=== PATIENT | female | born 1950 | race Caucasian/White ===

== ENCOUNTER → 2018-05-05 23:05 | Outpatient (CLI) | payer MEDICARE, OTHER, SELFPAY ==
[2018-03-24 17:14] VITALS: BMI 30.1
[2018-05-05 23:38] LABS: Thyroid Stim Hormone (TSH) 1.27 uIU/mL (0.358-3.74)
[2018-05-07 16:08] LABS: Thyroid Peroxidase AB 59 IU/mL (0-34)
[2018-05-07 18:24] LABS: Thyroglobulin Antibody < 1.0 IU/mL (0.0-0.9)
--- OUTSIDE RECORDS SUMMARY | 2018-08-07 10:37 | XMS RPT_ITS ---
:1950 Author Organization OHIP Care Team Providers Name Role Phone Avila Carreon WATER RECLAMATION SYSTEMS OPERATOR-C Attending Unavailable Carreon, Avila WATER RECLAMATION SYSTEMS OPERATOR-C Referring Unavailable Carreon, Avila WATER RECLAMATION SYSTEMS OPERATOR-C Primary Care Unavailable KETAN ECHEVERRIA Referring Unavailable GANGEL RA MISHRA Attending Unavailable CARREON, AVILA L Referring Unavailable GANGEL JR, RA GENE Referring Unavailable GANGEL JR, RA GENE Referring Unavailable GANGEL JR, RA GENE Referring Unavailable CARREON, AVILA L Referring Unavailable KETAN ECHEVERRIA Referring Unavailable GANRA COULTER JR Attending Unavailable CARREON, AVILA L Referring Unavailable GANGEL JR, RA GENE Referring Unavailable ERICKA LIVINGSTON Admitting Unavailable ERICKA LIVINGSTON Attending Unavailable SAUNDRA [employer] Consulting Unavailable BONIFACIO BEST Admitting Unavailable BONIFACIO BEST Attending Unavailable KETAN ECHEVERRIA Attending Unavailable KELTON MISHRA, RA GENE Referring Unavailable RA WARREN Attending Unavailable CARREON, AVILA Referring Unavailable CARROEN, AVILA Primary Care Unavailable MD KETAN ECHEVERRIA Referring Unavailable CARREON, AVILA Primary Care Unavailable RA WARREN Attending Unavailable CARREON, AVILA Referring Unavailable CARREON, AVILA Primary Care Unavailable RA WARREN Referring Unavailable CARREON, AVILA Primary Care Unavailable RA WARREN Referring Unavailable CARREON, AVILA Primary Care Unavailable RA WARREN Referring Unavailable CARREON, AVILA Primary Care Unavailable CARREON, AVILA Referring Unavailable CARREON, AVILA Primary Care Unavailable MD KETAN ECHEVERRIA Referring Unavailable CARREON, AVILA Primary Care Unavailable RA WARREN Referring Unavailable CARREON, AVILA Primary Care Unavailable ACRREON, AVILA Primary Care Unavailable ERICKA LIVINGSTON Admitting Unavailable ERICKA LIVINGSTON Attending Unavailable SAUNDRA [employer] Consulting Unavailable Yoli BEST Admitting Unavailable Yoli BEST Attending Unavailable CARREON, AVILA Primary Care Unavailable PROBLEMS PROBLEMS DATE TYPE CONDITION / CODE ATTENDING STATUS SOURCE 03/24/2018 Active Other chest pain SALVINO, Active [facility] / R07.89(ICD-10) BONIFACIO HUSSEIN Other [facility] Repository 03/24/2018 Active Chest pain, SALVINO, Active [facility] unspecified / BONIFACIO HUSSEIN Other [facility] R07.9(ICD-10) Repository 03/24/2018 Admitting Unknown / Yoli BEST Active [facility] diagnosis UNK(Unknown) BONIFACIO [facility] Repository 05/06/2018 Unknown E03.9 - Andrade, Active [place] Hypothyroidism, Avila WATER RECLAMATION SYSTEMS OPERATOR-C Community unspecified / Hospital E03.9(ICD-10) Repository 05/06/2018 Unknown R13.10 - Carreon, Active [facility] Dysphagia, Avila WATER RECLAMATION SYSTEMS OPERATOR-C Community unspecified / Hospital R13.10(ICD-10) Repository 03/22/2018 Active Jaw pain / LASH-RITTER, Active [facility] R68.84(ICD-10) ERICKA A Other [facility] Repository 08/23/2017 Active Unknown / NA Active [facility] UNK(Unknown) Other [facility] Rep[facility] 08/15/2017 Active Malignant NA Active [facility] neoplasm of Other [facility] unspecified Repository kidney, except renal pelvis / C64.9(ICD-10) 07/19/2017 Active Solitary NA Active [facility] pulmonary nodule Other [facility] / R91.1(ICD-10) Repository PROCEDURES PROCEDURES No Procedure Records FoundRESULTS RESULTS ANES POST Observed: 06/11/2018 Status: COMPLETED Source: [place] 9:51 AM [facility] OTHER CAMPUS REPOSITORY HNO ID: [id number] Author: Fab Hart Service: Anesthesiology Author Type: Physician Type: Anesthesia PostOp Filed: 06/11/2018 10:14 AM Note Text: POST ANESTHESIA EVALUATION NOTE SERVICE DATE: 06/11/2018 SERVICE TIME: 10:14 AM : 1950 Vitals: 06/11/18752 Temp: 36.6 ?C (97.9 ?F) 06/11/18 07506/11/18 0908 06/11/18917 BP: 171/82 150/73 144/81 06/11/18 0753 06/11/18 0908 06/11/18917 Pulse: 88 79 83 06/11/18 0753 06/11/18 0908 06/11/18917 Resp: 16 16 16 06/11/18 0753 06/11/18 0908 06/11/18917 SpO2: 99% 93% 96% Validated Vital Signs: Yes POST ANES STATUS: No apparent anesthetic complications. The patient is appropriately hydrated with stable respiratory and cardiovascular status. Patient has safe and adequate airway control. The patient has appropriate pain relief and no significant post operative nausea or vomiting. The patient has achieved baseline mental status. Intra-Operative Events: No Significant Anesthesia Events Further assessment by Anesthesia Service: None Other Remarks: SIGNATURE: Fab Hart MD PATIENT NAME: Peace Campa DATE: June 11, 2018 TIME: 10:14 AM PAGER/CONTACT #: NURSING PROG Observed: 06/11/2018 Status: COMPLETED Source: [place] 9:47 AM [facility] REPOSITORY HNO ID: [id number] Author: Lselie Mejia RN Service: (none) Author Type: Registered Nurse Type: Nursing Progress Note Filed: 06/11/2018 9:47 AM Note Text: Peace Campa [id number] AMBULATED TO BATHROOM WITH STEADY GAIT Leslie Mejia RN NURSING PROG Observed: 06/11/2018 Status: COMPLETED Source: [place] 9:41 AM [facility] REPOSITORY HNO ID: [id number] Author: Leslie Mejia RN Service: (none) Author Type: Registered Nurse Type: Nursing Progress Note Filed: 06/11/2018 9:41 AM Note Text: Peace Campa [id number] ATTENDING PHYSICIAN SPOKE WITH PATIENT AND VISITOR(S) Leslie Mejia RN NURSING PROG Observed: 06/11/2018 Status: COMPLETED Source: [place] 9:31 AM [facility] REPOSITORY HNO ID: [id number] Author: Leslie Mejia RN Service: (none) Author Type: Registered Nurse Type: Nursing Progress Note Filed: 06/11/2018 9:31 AM Note Text: Peace Campa [id number] PATIENT DRESSED SELF Leslie Mejia RN NURSING PROG Observed: 06/11/2018 Status: COMPLETED Source: [place] 9:19 AM [facility] REPOSITORY HNO ID: [id number] Author: Leslie Mejia RN Service: (none) Author Type: Registered Nurse Type: Nursing Progress Note Filed: 06/11/2018 9:20 AM Note Text: Peace Campa [id number] ANESTHESIOLOGIST SPOKE WITH PATIENT AND VISITOR(S) Leslie Mejia RN NURSING PROG Observed: 06/11/2018 Status: COMPLETED Source: [place] 8:59 AM [facility] REPOSITORY HNO ID: [id number] Author: Darya StringerRn) ANDRAE Leblanc Service: Nursing Author Type: Registered Nurse Type: Nursing Progress Note Filed: 06/11/2018 9:01 AM Note Text: ESOPHAGUS DILATED TO 20MM FOR [address] BEST. REF: [id number] LOT: [id number] EXP: 04-21-2020 18MM - 20MM OPERATIVE NO Observed: 06/11/2018 Status: COMPLETED Source: [place] 8:49 AM [facility] REPOSITORY HNO ID: [id number] Author: Bonifacio Best Service: Gastroenterology Author Type: Physician Type: Operative Report Filed: 06/11/2018 9:09 AM Note Text: OPERATIVE/PROCEDURE REPORT LOG ID: [id number] Surgery/Procedure Date: 06/11/2018 Incision/Procedure Start Time: 8:54 AM Incision Close/Procedure End Time: 9:01 AM Surgeon(s)/Proceduralist(s) and Metal Hardener(s): Surgeon(s) and Role: * Bonifacio Best - Primary No Additional Staff Procedure(s): Esophagogastroduodenoscopy (EGD) with biopsy and dilation Anesthesia: Monitored Anesthesia Care Brief History: 67 yo female with c/o upper abdominal pain, bloating and dysphagia. The benefits, alternatives, and risks of the procedure(s) including (but not exclusive to ) bleeding, perforation, allergic reaction(s) due to sedatives, need for hospitalization, need for transfusions, need for surgery, and likelihood of missing a polyp or neoplastic lesion, were explained to the patient/guardian/responsible accompanying adult who is agreeable. Procedure Details: The patient was placed in the left lateral decubitus position. A bite block was placed and medications administered as above. The Olympus gastroscope was used to intubate the oropharynx and esophagus with ease. We proceeded down to the second part of the duodenum. There was mild bulbar duodenitis seen with some erosions.We then withdrew into the stomach and visualized the antrum and body. There was mild antral gastritis seen. Biopsies were taken to rule out H. Pylori. Retroflexion was performed and this showed a hiatal hernia but otherwise was normal. The diaphragmatic hiatus was at 40 cm. The squamocolumnar junction, and GE junction were at 36 cm. There was LA grade A esophagitis seen and a loose stricture in the distal esophagus. Biopsies from the distal esophagus were obtained and the stricture was dilated with a 20 mm balloon which was held in place for 30 seconds. There was minimal resistance when the balloon was fully inflated. The scope was then withdrawn and the patient tolerated the procedure well. Pre-Op/Pre-Procedure Diagnosis: Abdomina pain Bloating Dysphagia Post-Op/Post-Procedure Diagnosis: Antral gastritis - biopsied Duodenitis LA grade A esophagitis - biopsied 4 cm hiatal hernia Loose stricture at GE junction - dilated as above Specimens: See above EBL: None Complications: None Recommendations: Start daily PPI F/U on pathology If no H. Pylori on pathology will schedule gastric emptying study Patient needs to schedule screening colonoscopy too as she has not had one done since about 2000 I performed the entire procedure. Bonifacio Best MD SIGNATURE: Bonifacio Best MD PATIENT NAME: Peace Campa DATE: June 11, 2018 TIME: 9:04 AM PAGER/CONTACT #: [phone] ANES PREOP Observed: 06/11/2018 Status: COMPLETED Source: [place] 8:12 AM [facility] REPOSITORY O ID: [id number] Author: Fab Hart Service: Anesthesiology Author Type: Physician Type: Anesthesia PreOp Filed: 06/11/2018 8:14 AM Note Text: ANESTHESIOLOGY DAY OF SURGERY NOTE SERVICE DATE: 06/11/2018 SERVICE TIME: 8:12 AM : 1950 Procedure(s) (LRB): EGD (N/A) Surgeon(s): Bonifacio Best Estimated body mass index is 30.11 kg/m? as calculated from the following: Height as of this encounter: 160 cm (5' 3). Weight as of this encounter: 77.1 kg (170 lb). 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 Renal Cell Carcinoma (Hcc) Tsh Elevation Thyroid Disorder Other Chest Pain Chest Pain PAST MEDICAL HISTORY Diagnosis Date - Kidney stones - Lung nodule found in 2006 or 2007- benign - Renal cell carcinoma (HCC) PAST SURGICAL HISTORY Procedure Laterality Date - F SALPINGO-OOPHORECTOMY [id number] - KIDNEY SURGERY HX Right 07/22/2016 KIDNEY TUMOR REMOVED AND CANCEROUS - NEPHRECTOMY PARTIAL right - PARATHYROID 2000 removed one FAMILY HISTORY Problem Relation Age of Onset - Colon Cancer Father - Pancreatic Cancer Father - Diabetes Mother - other (PARKINSONS) Mother - other (TIA) Mother - Heart Sister Atrial Fibrillation - other (PARKINSONS) Sister Social History: Social History Substance Use Topics - Smoking status: Never Smoker - Smokeless tobacco: Never Used - Alcohol use No No current facility-administered medications on file prior to encounter. Current Outpatient Prescriptions on File Prior to Encounter: Estradiol, Bulk, 100 % powd Progesterone, Bulk, 100 % powd Cholecalciferol, Vitamin D3, (VITAMIN D-3) 5,000 unit tab Take 5,000 Units by mouth once daily. VITAMIN B COMPLEX/FOLIC ACID (B COMPLEX 100 ORAL) Take by mouth. vit U-vghnjtto-jjm-calcium-D3 500 mg-500 mg -1,000 unit pwep Take by mouth. APPLE CIDER VINEGAR ORAL Take by mouth. Biotin 10,000 mcg cap Take 10,000 mcg by mouth once daily. Estriol, Bulk, 100 % powd ashwagandha root extract,bulk, 2.5 % powd BEARBERRY LEAF EXTRACT (UVA URSI LEAF FLUID EXTRACT [facility]) Current Facility-Administered Medications: lidocaine 10 mg/mL (1 %) 1-2 mg injection (XYLOCAINE) 0.1- 0.2 mL INTRADERMAL PRN Bonifacio Best lactated ringers infusion 5-30 mL/hr INTRAVENOUS CONTINUOUS Bonifacio Best lactated ringers infusion 125 mL/hr INTRAVENOUS (PACU) CONTINUOUS Fab Hart ondansetron (PF) 4 mg injection (ZOFRAN) 4 mg INTRAVENOUS (PACU) PRN Fab Hart Allergies: ALLERGIES Allergen Reactions - Sulfa (Sulfonamide * Unknown DOS EXAM: Adequate NPO status: Yes Anesthetic risks, benefits, alternatives, personnel and consent discussed: Yes Patient agrees to proceed: Yes Previous Anesthesia: No history of adverse event. Airway Assessment: MP 2; Neck ROM: Limited Extension; Airway Evaluation: Small Mouth Opening Symptoms of Sleep Apnea: None Dentition: Removable partial: upper Additional Physical Exam: Lungs: Patient health status unchanged since recent history and physical. See history and physical for exam findings. Cardiac: Patient health status unchanged since recent history and physical. See history and physical for exam findings. Additional Pertinent Findings: N/A Blood Products: Not anticipated for this procedure. Anesthetic Plan: General, Standard ASA Monitors, MAC with Sedation and Standard ASA Monitors Pain Management Plan: Parenteral or Oral and per Surgical Service ASA Class: 2 Other Medical Problems: None Chronic Beta Lizzy medication administered within 24 hours: N/A I have interviewed and examined the patient. I have reviewed the medical record and/or the pre-anesthesia evaluation, pertinent labs, and test results. Significant changes in the patient's condition since the History and Physical, not otherwise documented in primary service progress notes: No This contains updated information obtained within 48 hours of Surgery/Procedure. SIGNATURE: Fab Hart MD PATIENT NAME: Peace Campa DATE: June 11, 2018 TIME: 8:12 AM CSN: [id number] HISTORY PHYSICAL Observed: 06/11/2018 Status: COMPLETED Source: [place] 8:05 AM [facility] OTHER CAMPUS REPOSITORY [facility] ID: [id number] Author: Lynne Figueroa Service: (none) Author Type: Nurse Practitioner Type: HANDP Filed: 06/11/2018 8:55 AM Note Text: HISTORY AND PHYSICAL EXAMINATION Peace Lechuga Campa 1950 SERVICE DATE: 06/11/2018 SERVICE TIME: 8:05 AM PRIMARY CARE PHYSICIAN: Avila Carreon NP SURGEON: Surgeon(s) and Role: * Bonifacio Best - Primary ANESTHESIA: Monitored Anesthesia Care DIAGNOSIS: Other chest pain [R07.89] Chest pain [R07.9] PROCEDURE: Procedure(s): EGD (N/A) Subjective CHIEF COMPLAINT: scope HPI: This is a 67 year old female who presents with hx dysphagia with solids states has occurred for several years, is intermittent, also GERD symptoms at night. States abdominal distention for approx 2 months which is constant, states after eating has firmness of upper abdomen. Denies changes in bowel habits, last colonoscopy 2000. PROBLEMS WITH ANESTHESIA: no history of adverse anesthetic event FAMILY PROBLEMS WITH ANESTHESIA: no history of adverse anesthetic event METS: greater than 4 mets FUNCTIONAL STATUS: Independent PAST MEDICAL HISTORY Diagnosis Date - Kidney stones - Lung nodule found in 2006 or 2007- benign - Renal cell carcinoma (HCC) 07/2016 PAST SURGICAL HISTORY Procedure Laterality Date - F SALPINGO-OOPHORECTOMY [id number] bilateral - KIDNEY SURGERY HX Right 07/22/2016 KIDNEY TUMOR REMOVED AND CANCEROUS - NEPHRECTOMY PARTIAL 07/2016 right - PARATHYROID 2000 removed one FAMILY HISTORY Problem Relation Age of Onset - Colon Cancer Father - Pancreatic Cancer Father - Diabetes Mother - other (PARKINSONS) Mother - other (TIA) Mother - Heart Sister Atrial Fibrillation - other (PARKINSONS) Sister Social History Substance Use Topics - Smoking status: Never Smoker - Smokeless tobacco: Never Used - Alcohol use No Prior to Admission medications as of 06/11/18 0810 Medication Sig Last Dose Taking MEDICATION, NON-DATABASE Take by mouth three times daily. Gastrazyme Yes levothyroxine (SYNTHROID) 50 mcg tablet Yes Estradiol, Bulk, 100 % powd Yes Progesterone, Bulk, 100 % powd Yes Cholecalciferol, Vitamin D3, (VITAMIN D-3) 5,000 unit tab Take 5,000 Units by mouth once daily. Yes VITAMIN B COMPLEX/FOLIC ACID (B COMPLEX 100 ORAL) Take by mouth. Yes vit E-ucstsljl-dfi-calcium-D3 500 mg-500 mg -1,000 unit pwep Take by mouth. Yes APPLE CIDER VINEGAR ORAL Take by mouth. Biotin 10,000 mcg cap Take 10,000 mcg by mouth once daily. Estriol, Bulk, 100 % powd ashwagandha root extract,bulk, 2.5 % powd BEARBERRY LEAF EXTRACT (UVA URSI LEAF FLUID EXTRACT MISC) ALLERGIES Allergen Reactions - Sulfa (Sulfonamide * Unknown COMPLETE REVIEW OF SYSTEMS: GENERAL: No weight loss, malaise or fevers RESPIRATORY: Negative for cough, hemoptysis, wheezing, COPD, dyspnea or shortness of breath CARDIOVASCULAR: Negative for chest pain, leg swelling, hypertension, CHF or palpitations, stress echo negative ischemia, no regional wall motion abnormallity, EF 60%+/- 5% GI: See HPI : No history of dysuria, frequency or incontinence MUSCULOSKELETAL: Negative for joint pain or swelling, back pain or muscle pain PSYCH: Negative for sleep disturbance, mood disorder and recent psychosocial stressors ENDOCRINE: no DM + hypothyroidism NEURO: No history of headaches, syncope, paralysis, seizures or tremors Negative for stroke, seizures or headaches. Hem/Onc: no hx blood clots, clotting disorder hx renal cell carcinoma Objective PHYSICAL EXAM: MENTAL STATUS: alert, oriented to person, place and time HEENT: Normocephalic/atraumatic, no lymphadenopathy, pharynx clear LUNGS: Lungs clear to auscultation, Good diaphragmatic excursion CARDIAC: Normal S1 and S2; no rubs, murmurs, or gallops ABDOMEN: Abdomen soft, non-tender, BS normal, No masses or organomegaly EXTREMITIES: Extremities normal, no deformities, edema, clubbing or skin discoloration. Good capillary refill. 0=0/10 06/11/18 0753 BP: 171/82 Pulse: 88 Resp: 16 Temp: 36.6 ?C (97.9 ?F) SpO2: 99% Weight: 77.1 kg (170 lb) Height: 160 cm (5' 3) Body mass index is 30.11 kg/m?. SIGNATURE: Lynne Figueroa APRN.CNP PATIENT NAME: Peace Campa DATE: June 11, 2018 TIME: 8:05 AM PAGER/CONTACT #: PT ED Observed: 06/11/2018 Status: COMPLETED Source: [place] 7:50 AM [facility] OTHER [facility]US REPOSITORY HNO ID: [id number] Author: Maggie Lopez RN Service: (none) Author Type: Registered Nurse Type: Patient Education Filed: 06/11/2018 7:50 AM Note Text: ONGOING PATIENT EDUCATION TOPIC Reinforced: Patient Name: Peace Campa [facility] Readiness To Learn Motivation To Learn: Eager Instruction Provided To: Patient Learning Response Patient/Family Response: Verbalizes understanding of: PRE-PROCEDURE INSTRUCTIONS-Correct action to take to follow pre-procedure instructions Method of Instruction: Individual instruction Follow-Up Plan: Complete - No need for follow-up Electronically signed by: Maggie Lopez RN OFFICE VISIT Observed: 05/05/2018 Status: F Source: [place] 8:55 PM [facility] REPOSITORY After Hours Family [facility] [address] [place] [address] OFFICE VISIT Date of Service: 05/05/18 MR#: [id number] Acct: [id number] Name: PEACE CAMPA Rep #: [id number] : 1950 Provider: PARVEZ Carreon Age/Sex: 67/F Location: [facility] Status: Signed Intake Intake Visit Reasons: PAPER IN ACCORDION FILE Allergies sulfamethoxazole [From Bactrim] Adverse Reaction (Unknown, Unverified 01/21/18 17:49) unknown trimethoprim [From Bactrim] Adverse Reaction (Unknown, Unverified 01/21/18 17:49) unknown Medications Bi-est 0.625mg/0.5 ml 0.5 ml TOPICAL QDAY #30 01/21/18 [Rx Confirmed 01/21/18] apple cals PO 01/21/18 [History Confirmed 01/21/18] progesterone 0.25 ml TOPICAL BID #30 01/21/18 [Rx Confirmed 01/21/18] sour chin tablet PO .2 a day 01/21/18 [History Confirmed 01/21/18] levothyroxine 50 mcg tablet 50 mcg PO DAILY #30 tab 03/24/18 [Rx Confirmed 03/24/18] PFSH Medical History Headache (Acute) Kidney stone (Acute) Kidney tumor (Acute) Sore on toe (Acute) parathyroid removed 1 (Acute) Surgical History History of oophorectomy (Acute) History of partial nephrectomy (Acute) Family History Father Colon cancer Other CVA (cerebral vascular accident) Diabetes Hypertension Pancreas cancer HPI HPI (General) HPI HPI: PEACE CAMPA, is a 67 F who presents to the office today for Assessment AND Plan Orders Orders: Coding Level of Care Code No Charge 05/05/182054 <Electronically signed by Avila LONGORIA> Date Avila LONGORIA CC: THYROID STIM HORMONE Collected: 05/05/2018 Status: F Source: [place] (TSH) 3:50 PM [facility] REPOSITORY TYPE CODE TESTS RESULT OUT OF RANGE REFERENCE UNITS LAB L501.9520 0.358-3.74 uIU/mL Normal TSH 1.27 Performed By: #### L501.9520 #### [facility] [place], [address] THYROID ANTIBODIES Collected: 05/05/2018 Status: F Source: IR[place] 3:50 PM [facility] REPOSITORY TYPE CODE TESTS RESULT OUT OF RANGE REFERENCE UNITS LAB L3300.6900 0-34 IU/mL High TPO AB 59 6676 LAB [id number] 0.0-0.9 IU/mL Normal TG AB < 1.0 Result Comment: Thyroglobulin Antibody measured by [employer] Methodology Performed at: [facility] [address] [id number] [place] Hand: Ramone Perez PhD, Phone: [phone] Performed By: #### L3300.6750 #### [facility] (refer to report for specific site) refer to report for address and phone number OFFICE VISIT Observed: 03/24/2018 Status: F Source: [place] 9:59 PM [facility] REPOSITORY After Hours [facility] [address] [place] [address] OFFICE VISIT Date of Service: 03/24/18 MR#: [id number] Acct: [id number] Name: PEACE CAMPA Alexandrea Rep #: [id number] : 1950 Provider: PARVEZ Carreon Age/Sex: 67/F Location: [facility] Status: Signed Intake Vital Signs03/24/18 Height 5 ft 3 in 03/24/18 Weight: 170 lb Intake Visit Reasons: f/U HOSPITAL VISIT Allergies sulfamethoxazole [From Bactrim] Adverse Reaction (Unknown, Unverified 01/21/18 17:49) unknown trimethoprim [From Bactrim] Adverse Reaction (Unknown, Unverified 01/21/18 17:49) unknown Medications Bi-est 0.625mg/0.5 ml 0.5 ml TOPICAL QDAY #30 01/21/18 [Rx Confirmed 01/21/18] apple cals PO 01/21/18 [History Confirmed 01/21/18] progesterone 0.25 ml TOPICAL BID #30 01/21/18 [Rx Confirmed 01/21/18] sour chin tablet PO .2 a day 01/21/18 [History Confirmed 01/21/18] levothyroxine 50 mcg tablet 50 mcg PO DAILY #30 tab 03/24/18 [Rx Confirmed 03/24/18] PFSH Medical History Headache (Acute) Kidney stone (Acute) Kidney tumor (Acute) Sore on toe (Acute) parathyroid removed 1 (Acute) Surgical History History of oophorectomy (Acute) History of partial nephrectomy (Acute) Family History Father Colon cancer Other CVA (cerebral vascular accident) Diabetes Hypertension Pancreas cancer HPI HPI (General) HPI HPI: PEACE CAMPA, is a 67 F who presents to the office today for sudden onset of R jaw pain that progressively sent her to the Ed and was worked up for cardiac that ended up benign. Did find out her thyroid was high end of normal appointment with GI in Jun 11 for a UGI . ROS Const Constitutional: Positive for sleep problems and fatigue ENT ENT: Positive for facial pain and other (dysphagia) Endo Endo: Yes fatigue, Yes other (dysphagia) Exam Const Constitutional: Yes cooperative, Yes healthy appearing Orientation: Yes alert and awake Neck Neck: normal visual inspection Thyroid: thyroid normal Eyes General: Yes appearance normal, both eyes and all related structures Chest Chest palpation AND inspection: Yes normal inspection of the chest Resp Effort AND Inspection: Yes normal respiratory effort Auscultation: Yes clear to auscultation bilaterally Cardio Palpitation: Yes normal PMI Rate: Yes regular rate Rhythm: Yes regular rhythm GI Inspection: Yes normal to inspection Auscultation: Yes normal bowel sounds Musc Cervical Spine: Yes cervical ROM normal Thoracic/Lumbar Spine: Yes thoracic and lumbar spine normal to inspection Skin General: no rashes or lesions noted Lesions: Yes no lesions Extrem General: Yes normal to inspection Neuro General: Yes alert Psych Appearance: Positive grossly normal Mood: Positive congruent mood Affect: Positive normal affect Assessment AND Plan Problems 1. Acquired hypothyroidism E03.9 2. Oropharyngeal dysphagia R13.12 3. Jaw pain R68.84 Patient Instructions Take the levothyroxine daily by itself follow up in 6 weeks for lab work Medications New: Coding Level of Care Code Off vis,est,level 3 Diagnoses Acquired hypothyroidism E03.9 Hypothyroidism type: acquired Oropharyngeal dysphagia R13.12 Dysphagia type: oropharyngeal phase Jaw pain R68.84 03/24/182158 <Electronically signed by Avila LONGORIA> Date Avila LONGORIA CC: HOSP Observed: 03/24/2018 Status: COMPLETED Source: [facility] 12:00 AM [facility] OTHER [facility] REPOSITORY Patient:Peace Campa MRN: <[id number]> Height:5' 3(1.6 m) Weight:170 lb (77.111 kg) Outpatient Medications as of 06/11/18: MEDICATION, NON-DATABASE levothyroxine (SYNTHROID) 50 mcg tablet APPLE CIDER VINEGAR ORAL Biotin 10,000 mcg cap Estriol, Bulk, 100 % powd Estradiol, Bulk, 100 % powd Progesterone, Bulk, 100 % powd ashwagandha root extract,bulk, 2.5 % powd BEARBERRY LEAF EXTRACT (UVA URSI LEAF FLUID EXTRACT [facility] [place]) Cholecalciferol, Vitamin D3, (VITAMIN D-3) 5,000 unit tab VITAMIN B COMPLEX/FOLIC ACID (B COMPLEX 100 ORAL) vit N-taayfbgp-crz-calcium-D3 500 mg-500 mg -1,000 unit pwep Admission/Clinic Administered Medications as of 06/11/18: lactated ringers infusion lactated ringers infusion ondansetron (PF) 4 mg injection (ZOFRAN) Problem List: Axillary mass [R22.30] Mass of upper extremity [R22.30] 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 Current Outpatient Prescriptions: levothyroxine (SYNTHROID) 50 mcg tablet Cholecalciferol, Vitamin D3, (VITAMIN D-3) 5,000 unit tab Take 5,000 Units by mouth once daily. VITAMIN B COMPLEX/FOLIC ACID (B COMPLEX 100 ORAL) Take by mouth. vit N-wsyeucmk-lgb-calcium-D3 500 mg-500 mg -1,000 unit pwep Take by mouth. APPLE CIDER VINEGAR ORAL Take by mouth. Biotin 10,000 mcg cap Take 10,000 mcg by mouth once daily. Estriol, Bulk, 100 % powd Estradiol, Bulk, 100 % powd Progesterone, Bulk, 100 % powd ashwagandha root extract,bulk, 2.5 % powd BEARBERRY LEAF EXTRACT (UVA URSI LEAF FLUID EXTRACT MISC) No current facility-administered medications for this visit. ALLERGIES Allergen Reactions - Sulfa (Sulfonamide * Unknown PAST MEDICAL HISTORY Diagnosis Date - Kidney stones - Lung nodule found in 2006 or 2007- benign - Renal cell carcinoma (HCC) PAST SURGICAL HISTORY Procedure Laterality Date - F SALPINGO-OOPHORECTOMY [id number] - KIDNEY SURGERY HX Right 07/22/2016 KIDNEY TUMOR REMOVED AND CANCEROUS - NEPHRECTOMY PARTIAL right - PARATHYROID 2000 removed one FAMILY HISTORY Problem Relation Age of Onset - Colon Cancer Father - Pancreatic Cancer Father - Diabetes Mother - other (PARKINSONS) Mother - other (TIA) Mother - Heart Sister Atrial Fibrillation - other (PARKINSONS) Sister Social History Marital status: Spouse name: Years of education: Number of children: Social History Main Topics Smoking status: Never Smoker Smokeless tobacco: Never Used Alcohol use: No Drug use: No Other Topics Concern Caffeine Concern No Comment:2 cups per day GASTROENTESTINAL: Bloagting URINARY: NONE CARDIOVASCULAR: NONE NEUROLOGICAL: NONE CONSTITUTIONAL: NONE EYES: NONE EARS, NOSE AND THROAT: NONE RESPIRATORY: NONE SKIN: NONE ENDOCRINE: Hair Loss PSYCHIATRIC: NONE HEMATOLOGIC NONE MUSCULOSKELETAL: NONE IMMUNOLOGIC: NONE PHYSICAL EXAMINATION: @VSREFRESH@ GENERAL APPEARANCE: Well appearing, alert, in no acute distress, well-hydrated, well nourished.. SKIN: Skin color, texture, turgor normal, no suspicious rashes or lesions. EYES: Anicteric sclera. Pupils are equally round and reactive to light. Extraocular movements are intact. . NECK: Supple, no adenopathy; thyroid symmetric, normal size, no bruits. LUNGS: Lungs clear to auscultation. No wheezing, rhonchi, rales. HEART: RRR without murmur, gallop, or rubs. No ectopy. ABDOMEN: Abdomen soft, non-tender, non distended. Bowel sounds normal. No masses, ascites or hepatosplenomegaly. EXTREMITIES: No deformities, edema, skin discoloration, clubbing or cyanosis. NEUROLOGIC: Gait normal. Sensation and strength grossly intact.. NURSING PROG Observed: 03/22/2018 Status: COMPLETED Source: [facility] 2:02 PM [facility] REPOSITORY HNO ID: [id number] Author: Key StringerRn) ANDRAE Kumar Service: (none) Author Type: Registered Nurse Type: Nursing Progress Note Filed: 03/22/2018 2:03 PM Note Text: Discharge instructions given and pt discharged home CNDS Observed: 03/22/2018 Status: COMPLETED Source: [place] 1:15 PM [facility] REPOSITORY HNO ID: [id number] Author: Xenia Salgado Service: Hospital Medicine Author Type: Nurse Practitioner Type: Discharge Summaries Filed: 03/22/2018 1:45 PM Note Text: Attestation signed by Ericka Livingston at 03/23/2018 8:32 PM Attending Note I have reviewed the PA/LINING REPAIRER note. Additions or changes: None Signature: Ericka Livingston MD Date: 03/23/2018 Time: 8:32 PM DISCHARGE SUMMARY PATIENT NAME: Peace Campa ADMISSION DATE: 03/22/2018 DISCHARGE DATE: 03/22/2018 Attending Physician: Ericka Livingston Code Status: Not on file Highest Readmission Risk Score: 8 The 30 day readmissions risk score is derived from an internally validated risk model which evaluates patient level characteristics, utilization history, medication orders and lab results up until the day of discharge. Patients with a score of 40 or above are considered highest risk for readmission. Specific patient level drivers will be listed at the bottom of the summary. Reason for Hospitalization: chest pain Diagnosis: Principal Problem: Jaw pain Hospital Course as Described to the Patient: Peace Campa, you came to the hospital because you were having jaw pain and we were concerned that this may be cardiac in nature. You were placed in observation for further work-up and evaluation so that we could monitor your condition. While here, your blood work and EKGs were monitored. You also underwent a cardiac stress test which was within normal limits. At this time, we feel it is safe for you to return home and you are being discharged. You were interested in following up with a Gasterenterologist Dr Best ([phone]) for difficulty swallowing/getting food stuck and an Director Of Rotc Dr King ([phone]) for the thyroid history. We also recommend you follow-up with your primary care physician within 7 days to discuss your recent hospitalization and assure your symptoms continue to improve. Transitions of Care Critical Issues: none LABS AND PROCEDURES PENDING AT DISCHARGE: Test Results Not Yet Available from This Hospitalization: Please Review at Your Follow Up Appointment None No pending results. Additional Provider to Provider Information: Principal Problem: Jaw pain POA: Yes Assessment AND Plan: the initial Jaw pain has resolved. --slight pain cont however it is located more in the throat/thryoid area. Pt states in the past she had part of her parathyroid removed and has not had issues until now. Enc pt to discuss this with her PCP. Pt is also interested in meeting with GI d/t she has a hx of getting food stuck/diff swallowing she now thinks this may all be connected. --stress test today to ensure this is not a cardiac symptom was neg --ekg wnl --troponins wnl Hx of parathyroid surgery--added tsh this am which came back slightly elevated at 3.89. Pt is aware she will discuss this with her PCP and she is interested in following up with an signal fitter. A number was given for an signal fitter in dc instructions Operations During Hospitalization: None Procedures During Hospitalization: EKG Stress Test Consulting Teams During Hospitalization: Treatment Team: Attending Provider: Ericka Livingston Consulting: Saundra Ngo MD None Patient Condition @ Discharge: Stable Discharge Disposition: Home/Self Care Discharge Physical Exam: VITAL SIGNS: BP 151/79 Pulse 88 Temp 36.6 ?C (97.9 ?F) (Oral) Resp 18 Ht 157.5 cm (5' 2) Wt 77.1 kg (170 lb) SpO2 97% BMI 31.09 kg/m? GENERAL: Alert, no distress, cooperative SKIN: Skin color, texture, turgor normal. No rashes or lesions. HEAD/SINUSES: No significant findings EYES: PERRLA, EOMI EARS: External ears normal, canals clear NOSE: Nares normal. Septum midline. OROPHARYNX: Lips, mucosa, and tongue normal. Teeth and gums normal. Oropharynx normal. NECK: No jugulovenous distention, No carotid bruits, Carotid pulse normal contour, Supple LUNGS: Lungs clear to auscultation, Good diaphragmatic excursion CARDIAC: Normal S1 and S2; no rubs, murmurs, or gallops ABDOMEN: Abdomen soft, non-tender, BS normal, No masses or organomegaly EXTREMITIES: Extremities normal, no deformities, edema, clubbing or skin discoloration. Good capillary refill., No ulcers NEURO: Gait normal. Reflexes normal and symmetric. Sensation grossly intact, Cranial nerves II-XII intact PULSES: 2+ radial, 2+ carotid The remainder of the physical exam is noncontributory. Information Provided to Patient: cardiac chest pain risk factors Diet: Resume pre-hospital diet Activity: Resume pre-hospital activity Wound/Surgical Site Care: ALLERGIES Allergen Reactions - Sulfa (Sulfonamide * Unknown Discharge Medications: Current Discharge Medication List CONTINUE these medications which have NOT CHANGED Biotin 10,000 mcg Take 10,000 mcg by mouth once daily. Estradiol, Bulk, 100 % powd Progesterone, Bulk, 100 % powd cholecalciferol (VITAMIN D3) 5,000 Units Take 5,000 Units by mouth once daily. VITAMIN B COMPLEX/FOLIC ACID (B COMPLEX 100 ORAL) Take by mouth. vit Y-kuqrtzwh-npm-calcium-D3 500 mg-500 mg -1,000 unit pwep Take by mouth. APPLE CIDER VINEGAR ORAL Take by mouth. Estriol, Bulk, 100 % powd ashwagandha root extract,bulk, 2.5 % powd BEARBERRY LEAF EXTRACT (UVA URSI LEAF FLUID EXTRACT MISC) Future Appointments: Follow Up with PCP: Avila Carreon NP Date and Time Provider Department Dept Phone 02/23/2019 8:15 AM Ra Warren JrGreyson Urol [facility] [phone] The patient's risk for 30-day readmission is determined using the following contributing factors: Pt variables contributing to increased readmission risk: 16 Most Recent BUN Result 8.9 First Resulted Calcium During Admission 1 Previous ED Visit (6 mos.)? 1 Number of Previous ED Visits (6 mos.) 1 Insurance - Medicare 1 Active Medication Orders TIME OF CARE: Discharge Management: I personally spent greater than 30 minutes involved in the discharge management of this patient. SIGNATURE: Xenia Salgado PATIENT NAME: Peace Campa DATE: March 22, 2018 TIME: PAGER/CONTACT #: CONSULT Observed: 03/22/2018 Status: COMPLETED Source: [facility] 12:09 PM [facility] REPOSITORY HNO ID: [id number] Author: Saundra Ngo MD Service: Gastroenterology Author Type: Physician Type: Consults Filed: 03/22/2018 6:12 PM Note Text: CONSULT: GASTROENTEROLOGY SERVICE SERVICE DATE: 03/22/18 SERVICE TIME: 12:09 PM REASON FOR CONSULT: difficulty swallowing/jaw pain REQUESTING PHYSICIAN: Miki Pt left before I was able to see her. She is suppose to follow up in the GI clinic as an outpt. SIGNATURE: Saundra Ngo MD PATIENT NAME: Peace Campa DATE: 03/22/18 TIME: 12:09 PM NURSING PROG Observed: 03/22/2018 Status: COMPLETED Source: [place] 11:48 AM [facility] OTHER CAMPUS REPOSITORY HNO ID: [id number] Author: Betsy StringerRn) ANDRAE Gonzales Service: Cardiovascular Testing Author Type: Registered Nurse Type: Nursing Progress Note Filed: 03/22/2018 11:49 AM Note Text: Stress Echo teaching done. Test complete, report to follow. NURSING PROG Observed: 03/22/2018 Status: COMPLETED Source: [facility] 10:34 AM [facility] OTHER [facility] REPOSITORY HNO ID: [id number] Author: Key (Rn) ANDRAE Kumar Service: (none) Author Type: Registered Nurse Type: Nursing Progress Note Filed: 03/22/2018 10:34 AM Note Text: Pt sent to cardiac fxn via w/c HEMOGRAM/DIFF Collected: 03/22/2018 Status: F Source: [facility] 9:30 AM [facility] SYSTEM REPOSITORY TYPE CODE TESTS RESULT OUT OF REFERENCE UNITS RANGE LAB WBC(LOINC) 3.98-10.04 thou/cmm WBC 8.66 LAB RBC(LOINC) 3.93-5.22 mil/cmm RBC 4.85 LAB HGB(LOINC) 11.2-15.7 g/dL Hgb 14.5 LAB HCT(LOINC) 34.1-44.9 % Hct 43.5 LAB MCV(LOINC) 79.4-94.8 fl MCV 89.7 LAB MCH(LOINC) 25.6-32.2 pg MCH 29.9 LAB MCHC(LOINC 31.6-34.8 % ) MCHC 33.3 LAB RDW(LOINC) 11.7-14.4 % RDW 13.5 LAB RDWSD(LOIN 36.4-46.3 fl C) RDW SD 44.1 LAB PLT(LOINC) 182-369 thou/cmm Platelet 359 LAB MPV(LOINC) 9.4-12.3 fl MPV 9.8 LAB SEG(LOINC) % Seg Neutrophil 73.1 LAB IGRE(LOINC % ) Immature Grans 0.20 LAB LYMPH(LOIN % C) Lymphocyte 15.4 LAB MNO(LOINC) % Monocyte 9.0 LAB EOSIN(LOIN % C) Eosinophil 1.7 LAB BASO(LOINC % ) Basophil 0.6 LAB SEGN(LOINC 1.56-6.13 thou/cmm ) Abs. High Neut (ANC) 6.33 LAB IGAB(LOINC 0.00-0.05 thou/cmm ) Abs Immature Grans 0.02 LAB LYMN(LOINC 1.18-3.74 thou/cmm ) Abs. Lymph 1.33 LAB MONON(LOIN 0.27-0.70 thou/cmm C) Abs. High [place] 0.78 LAB EOSN(LOINC 0.00-0.31 thou/cmm ) Abs. Eosin 0.15 LAB BASON(LOIN 0.01-0.08 thou/cmm C) Abs. Baso 0.05 Performed By: #### CBCD1 #### [place] [address] TROPONIN I Collected: 03/22/2018 Status: F Source: [facility] 8:30 AM HEALTH SYSTEM REPOSITORY TYPE CODE TESTS RESULT OUT OF REFERENCE UNITS RANGE LAB TROP(LOINC) 0.015-0.045 ng/ml Troponin I < 0.015 Performed By: #### TROP #### [place] [address] TSH, 3RD GENERATION Collected: 03/22/2018 Status: F Source: [facility] 8:30 AM HEALTH SYSTEM REPOSITORY TYPE CODE TESTS RESULT OUT OF REFERENCE UNITS RANGE LAB TSH3(LOINC 0.358-3.740 uIU/mL ) TSH, 3rd High generation 3.890 Performed By: #### TSH3 #### [place] [address] EKG (AK,AV,EU,FV,HL,SIMRAN,MM,SP) Observed: Status: F Source: [facility] 03/22/2018 6:46 AM [facility]INIC OTHER CAMPUS REPOSITORY NAME : PEACE CAMPA PID : [id number] : 1950 Gender : Female Race : ORD : [id number] Procedure Date : Mar 22 2018 06:46 Edit Date : Mar 24 2018 17:56 Diagnosis:NORMAL SINUS RHYTHM POSSIBLE LEFT ATRIAL ENLARGEMENT LEFT AXIS DEVIATION ABNORMAL ECG WHEN COMPARED WITH ECG OF 22-MAR-2018 00:25, NO SIGNIFICANT CHANGE WAS FOUND Confirmed by Amando BRITO M.D. ([id number]) on 03/24/2018 5:56:37 PM Ventricular Rate : 91 BPM Atrial Rate : 91 BPM P-R Interval : 148 ms QRS Duration : 82 ms Q-T Interval : 372 ms QTC Calculation(Bezet) : 457 ms P [place] : 42 degrees R [place] : -40 degrees T [place] : 14 degrees Test Reason : Chest Pain Location : 103 : [place] ROU Overread By : Amando BRITO M.D. Editted By : Amando BRITO M.D. Referred By : DELFIN SOLANO Acquired by : Kami Mandujano TROPONIN I Collected: 03/22/2018 Status: F Source: [facility] 6:33 AM HEALTH SYSTEM REPOSITORY TYPE CODE TESTS RESULT OUT OF REFERENCE UNITS RANGE LAB TROP(LOINC) 0.015-0.045 ng/ml Troponin I < 0.015 Performed By: #### TROP #### [place] [address] ED NOTE Observed: 03/22/2018 Status: COMPLETED Source: [facility] 4:53 AM [facility] OTHER [facility] REPOSITORY HNO ID: [id number] Author: Eveline (Rn) ANDRAE Claire Service: Emergency Medicine Author Type: Registered Nurse Type: ED Notes Filed: 03/22/2018 4:57 AM Note Text: Called [facility] spoke with Baldomero. Assigned nurse to call this nurse back corey for report HISTORY PHYSICAL Observed: 03/22/2018 Status: COMPLETED Source: [facility] 3:46 AM [facility] OTHER [facility] REPOSITORY HNO ID: [id number] Author: Delfin Silverio (Sizing Machine Operator) MARLEN Solano Service: Hospital Medicine Author Type: Nurse Practitioner Type: HANDP Filed: 03/22/2018 6:27 AM Note Text: RAPID OBSERVATION UNIT HISTORY AND PHYSICAL EXAM SERVICE DATE: March 22, 2018 SERVICE TIME: 6:22 AM Primary Care Physician: Avila Carreon NP NIGHT AND WEEKEND COVERAGE: Patient admitted to [facility] service. Page KUMAR pager [phone] for any patient concerns/issues. Subjective CHIEF COMPLAINT: Jaw pain HPI: This is a 67 year old female with PMH of renal cell carcinoma who presents with complaints of jaw pain. Symptoms began while sitting down for dinner. Pt describes sharp pain in right side of jaw with radiation under chin and into left jaw, and also radiation down into her neck and middle of her chest. Pain is worsened with exertion and improved with rest, but has not fully subsided since onset yesterday evening. Also endorses occasional palpitations, unclear if associated with jaw/chest symptoms or not. Denies shortness of breath, oral/dental pain, pain with biting or clenching teeth, dysphagia, nausea, vomiting, headache, fever/chills. Has never experienced symptoms like this before. Has not had any prior cardiac testing. No personal history of OK, HTN, HLD, DM, cardiovascular disease, blood clots, trigeminal neuralgia. PAST MEDICAL HISTORY Diagnosis Date - Kidney stones - Lung nodule found in 2006 or 2007- benign - Renal cell carcinoma (HCC) PAST SURGICAL HISTORY Procedure Laterality Date - F SALPINGO-OOPHORECTOMY [id number] - KIDNEY SURGERY HX Right 07/22/2016 KIDNEY TUMOR REMOVED AND CANCEROUS - NEPHRECTOMY PARTIAL right - PARATHYROID 2000 removed one FAMILY HISTORY Problem Relation Age of Onset - Colon Cancer Father - Pancreatic Cancer Father - Diabetes Mother - other (PARKINSONS) Mother - other (TIA) Mother - Heart Sister Atrial Fibrillation - other (PARKINSONS) Sister Social History Substance Use Topics - Smoking status: Never Smoker - Smokeless tobacco: Never Used - Alcohol use No MEDICATIONS: Reviewed Prescriptions Prior to Admission: Biotin 10,000 mcg cap Take 10,000 mcg by mouth once daily. Disp: Rfl: Not Taking Estradiol, Bulk, 100 % powd Disp: Rfl: Taking Progesterone, Bulk, 100 % powd Disp: Rfl: Taking Cholecalciferol, Vitamin D3, (VITAMIN D-3) 5,000 unit tab Take 5,000 Units by mouth once daily. Disp: Rfl: Taking VITAMIN B COMPLEX/FOLIC ACID (B COMPLEX 100 ORAL) Take by mouth. Disp: Rfl: Taking vit I-rotkzhxk-dpr-calcium-D3 500 mg-500 mg -1,000 unit pwep Take by mouth. Disp: Rfl: Taking APPLE CIDER VINEGAR ORAL Take by mouth. Disp: Rfl: Not Taking Estriol, Bulk, 100 % powd Disp: Rfl: Taking ashwagandha root extract,bulk, 2.5 % powd Disp: Rfl: Not Taking BEARBERRY LEAF EXTRACT (UVA URSI LEAF FLUID EXTRACT MISC) Disp: Rfl: Not Taking ALLERGIES Allergen Reactions - Sulfa (Sulfonamide * Unknown REVIEW OF SYSTEM: PAIN ASSESSMENT: (+) mild pain in right jaw currently GENERAL: No weight loss, malaise or fevers HEENT: No frequent or significant headaches, no changes in hearing or vision, no nosebleeds, congestion or rhinorrhea NECK: No lumps or neck swelling RESPIRATORY: No cough, hemoptysis, wheezing, dyspnea or shortness of breath CARDIOVASCULAR: (+) jaw pain with radiation into chest. (+) intermittent, brief palpitations. No LE edema GI: No nausea, vomiting, diarrhea, constipation, heartburn or reflux symptoms : No dysuria, frequency or incontinence MUSCULOSKELETAL: No joint pain or swelling, back pain or muscle pain SKIN: No rash or itching HEMATOLOGY/LYMPHOLOGY: No prolonged bleeding or blood clots NEURO: No headaches, syncope, paralysis, paresthesias, seizures or tremors Objective PHYSICAL EXAM: BP 124/68 Pulse 89 Temp (Src) 98.6 (Oral) Resp 20 Ht 5' 2 (1.58m) Wt 170 lb (77.1kg) SpO2 95% BMI 31.09 kg/(m2). Physical Exam Performed: General: Alert, well-developed, well-nourished, cooperative Skin: Warm AND dry, color AND turgor WNL Eyes: Conjunctiva clear Neck: Supple, no palpable lymphadenopathy, no carotid bruit, no pain with palpation Back: No CVAT Lungs: Clear to auscultation bilaterally with no wheezes, crackles or rhonchi Cardiac: Regular rate AND rhythm, normal S1 S2, no murmur. No chest wall tenderness to palpation Abdomen: Obese, soft, non-tender, non-distended, bowel sounds normoactive Extremities: No edema, capillary refill <3 seconds Neuro: Grossly normal cognition AND motor function Pulses: 2+ radial, 2+ dorsalis pedis DATA: Diagnostic tests reviewed for today's visit: Most recent labs and imaging results. Most recent EKG CXR: IMPRESSION: No acute radiographic abnormality. Ref. Range 03/22/2018 02:21 Sodium Latest Ref Range: 136 - 145 mEq/L 140 Potassium Latest Ref Range: 3.5 - 5.1 mEq/L 3.8 Chloride Latest Ref Range: 98 - 107 mEq/L 104 CO2 Latest Ref Range: 21 - 32 mEq/L 28 BUN Latest Ref Range: 7 - 18 mg/dL 16 Creatinine Latest Ref Range: 0.51 - 0.95 mg/dL 0.77 Glucose Latest Ref Range: 70 - 99 mg/dL 112 (H) Calcium Latest Ref Range: 8.5 - 10.1 mg/dL 8.9 Anion Gap Latest Ref Range: 8 - 16 12 ECU Troponin I Latest Ref Range: 0.015 - 0.045 ng/ml <0.015 eGFR Latest Ref Range: >60mL/min/1.73m2 >60 Hematocrit Latest Ref Range: 34.1 - 44.9 % 45.1 (H) WBC Latest Ref Range: 3.98 - 10.04 thou/cmm 10.06 (H) RBC Latest Ref Range: 3.93 - 5.22 mil/cmm 5.00 HGB Latest Ref Range: 11.2 - 15.7 g/dL 14.9 Platelet Count Latest Ref Range: 182 - 369 thou/cmm 379 (H) MCV Latest Ref Range: 79.4 - 94.8 fl 90.2 MCH Latest Ref Range: 25.6 - 32.2 pg 29.8 MCHC Latest Ref Range: 31.6 - 34.8 % 33.0 MPV Latest Ref Range: 9.4 - 12.3 fl 10.0 RDW-SD Latest Ref Range: 36.4 - 46.3 fl 43.6 Seg Neutrophil Latest Units: % 72.0 Lymphocyte Latest Units: % 15.6 Monocyte Latest Units: % 8.8 Eosinophil Latest Units: % 2.6 Basophil Latest Units: % 0.7 Abs. Baso Latest Ref Range: 0.01 - 0.08 thou/cmm 0.07 Abs. Eosin Latest Ref Range: 0.00 - 0.31 thou/cmm 0.26 Immature Grans Latest Units: % 0.30 Immature Grans # Latest Ref Range: 0.00 - 0.05 thou/cmm 0.03 Abs. Lymph Latest Ref Range: 1.18 - 3.74 thou/cmm 1.57 Abs. [place] Latest Ref Range: 0.27 - 0.70 thou/cmm 0.89 (H) RDW Latest Ref Range: 11.7 - 14.4 % 13.4 Abs. Neut(Anc) Latest Ref Range: 1.56 - 6.13 thou/cmm 7.24 (H) Assessment/Plan Principal Problem: Jaw pain POA: Yes Assessment AND Plan: - Jaw pain, worse with exertion and improved with rest, of concern for anginal equivalent - CXR showed no acute pathology - EKG shows NSR with nonspecific T-wave changes - CBC, BMP unremarkable - Troponin negative in ED - HEART score = 4 - Cycle troponin x3 total - Repeat EKG - Telemetry monitoring - Diet: NPO - TMSE if troponin remains negative Medication and Non-Pharmacologic VTE Prophylaxis/Anticoagulants VTE Prophylaxis: VTE prophylaxis appropriate Plan of care discussed with: Patient and RN SIGNATURE: Delfin Solano APRN.CNP PATIENT NAME: Peace Campa DATE: March 22, 2018 TIME: 3:46 AM PAGER/CONTACT #: [phone] ED PROV NOTE Observed: 03/22/2018 Status: COMPLETED Source: [place] 2:44 AM [facility] OTHER CAMPUS REPOSITORY HNO ID: [id number] Author: Gavin Moy DO Service: Emergency Medicine Author Type: Physician Type: ED Provider Notes Filed: 03/22/2018 9:34 PM Note Text: ED Provider Note Patient Name: Peace Campa SERVICE DATE: 03/22/18 History Patient presents with: Neck Pain: at 1800 tonight she dev right sided jaw pain that gets worse with walking/activity, now the pain has spread to the left side of her jaw. She also says the dull ache intensifies when she takes a deep breath. Denies cp/sob/shoulder/back pain. Denies trauma to her jaw. Denies any medical problems. Patient is a 67-year-old female with no significant past medical history who presents emergency Department with chief complaint of jaw pain. Patient states that yesterday evening she developed right- sided achy throbbing jaw/right facial pain that she states has now progressed into the left side which wraps underneath her jaw. Patient states the pain is worse with standing and certain movements like bending over and walking around. Patient denies any worsening pain with eating or movement of the jaw. Patient denies any dental pain, trouble swallowing or sore throat. Patient denies any fevers chills. Patient states she has never had anything like for the past. Patient also states she has been burping more frequently tonight. Patient states she had one episode of feeling winded after walking. Patient states she became concerned because she was reading online that these could be atypical symptoms of a heart attack and decided to come into the emergency department. Patient does states she take a low dose baby aspirin prior to arrival. Patient denies any complaints or symptoms. PAST MEDICAL HISTORY Diagnosis Date - Lung nodule found in 2006 or 2007- benign PAST SURGICAL HISTORY Procedure Laterality Date - F SALPINGO-OOPHORECTOMY [id number] - KIDNEY SURGERY HX Right 07/22/2016 KIDNEY TUMOR REMOVED AND CANCEROUS - PARATHYROID 2000 removed one FAMILY HISTORY Problem Relation Age of Onset - Colon Cancer Father - other (PARKINSONS) Mother - other (PARKINSONS) Sister Social History Social History Main Topics - Smoking status: Never Smoker - Smokeless tobacco: Never Used - Alcohol use No - Drug use: No - Sexual activity: Not on file ALLERGIES Allergen Reactions - Sulfa (Sulfonamide * Unknown Review of Systems Constitutional: Negative for chills and fever. HENT: Negative for congestion and nosebleeds. Respiratory: Negative for chest tightness and wheezing. Cardiovascular: Negative for chest pain and palpitations. Gastrointestinal: Negative for constipation, diarrhea, nausea and vomiting. Genitourinary: Negative for dysuria and hematuria. Musculoskeletal: Negative for neck pain and neck stiffness. Skin: Negative for color change and rash. Neurological: Negative for dizziness and syncope. Psychiatric/Behavioral: Negative for agitation and confusion. Physical Exam BP 154/86 Pulse 89 Temp (Src) 97.7 (Oral) Resp 17 Ht 5' 2 (1.58m) Wt 170 lb (77.1kg) SpO2 93% BMI 31.09 kg/(m2). Physical Exam Constitutional: She is oriented to person, place, and time. She appears well-developed and well-nourished. HENT: Head: Normocephalic and atraumatic. No right or left TMJ tenderness, no tenderness to the maxilla, noted dental tenderness. Normal dentition. No throat erythema or exudate. EAC's normal, no TM redness or effusion. Eyes: Conjunctivae and EOM are normal. Neck: Normal range of motion. Neck supple. Cardiovascular: Normal rate, regular rhythm and normal heart sounds. Exam reveals no gallop and no friction rub. No murmur heard. Pulmonary/Chest: Effort normal and breath sounds normal. No respiratory distress. She has no wheezes. Abdominal: Soft. Bowel sounds are normal. There is no tenderness. There is no rebound and no guarding. Musculoskeletal: Normal range of motion. She exhibits no edema. Neurological: She is alert and oriented to person, place, and time. Skin: Skin is warm and dry. Capillary refill takes less than 2 seconds. Psychiatric: She has a normal mood and affect. Her behavior is normal. Diagnostic Testing ED Labs Ordered and Reviewed BASIC METABOLIC PANEL (AK,AV,EU,FV,HL,SIMRAN,MM,SP) CBC + AUTO DIFF (AK,AV,EU,FV,HL,SIMRAN,MM,SP) ECU TROPONIN I (AR ED) MDRD GFR Procedures ED Course / Clinical Impression Clinical Impressions as of Mar 22 442 Jaw pain MDM / Disposition / Plan Patient is a 67-year-old female who presents emergency Department chief complaint neck pain. History of physical performed. Patient with achy throbbing right-sided jaw pain that began earlier this evening the progressed into the left side of her jaw and neck with an episode of shortness of breath and increased belching. The patient's pain is exertional and dependent on certain movements. There is no increased pain with chewing or movement of the jaw. Concern at this point is for ACS especially with exertional component patient's pain and so chest x-ray, troponin and EKG have been ordered. We'll also order basic lab work. There is no tenderness at the TMJ and no increased pain with movement of the jaw, not concerned for any TMJ dysfunction at this point. There is no sign of any dental infection or any intraoral lesions that could be causing the patient's pain. Patient's chest x-ray was normal and labs were all unremarkable. Initial troponin is negative. Patient's heart score is a 3 with 1 point given for history and 2 point for age. We recommended admission to the rapid observation unit to trend troponins and to set up for a stress test. Pt stable on admission. SIGNATURE: Shoaib Saez DO Please see separate attending physician note Shoaib Saez DO Resident 03/22/18 0557 Gavin Moy DO 03/22/18 2134 HEMOGRAM/DIFF Collected: 03/22/2018 Status: F Source: [facility] 2:21 AM HE[facility] SYSTEM REPOSITORY TYPE CODE TESTS RESULT OUT OF REFERENCE UNITS RANGE LAB WBC(LOINC) 3.98-10.04 thou/cmm WBC High 10.06 LAB RBC(LOINC) 3.93-5.22 mil/cmm RBC 5.00 LAB HGB(LOINC) 11.2-15.7 g/dL Hgb 14.9 LAB HCT(LOINC) 34.1-44.9 % Hct High 45.1 LAB MCV(LOINC) 79.4-94.8 fl MCV 90.2 LAB MCH(LOINC) 25.6-32.2 pg MCH 29.8 LAB MCHC(LOINC 31.6-34.8 % ) MCHC 33.0 LAB RDW(LOINC) 11.7-14.4 % RDW 13.4 LAB RDWSD(LOIN 36.4-46.3 fl C) RDW SD 43.6 LAB PLT(LOINC) 182-369 thou/cmm Platelet High 379 LAB MPV(LOINC) 9.4-12.3 fl MPV 10.0 LAB SEG(LOINC) % Seg Neutrophil 72.0 LAB IGRE(LOINC % ) Immature Grans 0.30 LAB LYMPH(LOIN % C) Lymphocyte 15.6 LAB MNO(LOINC) % Monocyte 8.8 LAB EOSIN(LOIN % C) Eosinophil 2.6 LAB BASO(LOINC % ) Basophil 0.7 LAB SEGN(LOINC 1.56-6.13 thou/cmm ) Abs. High Neut (ANC) 7.24 LAB IGAB(LOINC 0.00-0.05 thou/cmm ) Abs Immature Grans 0.03 LAB LYMN(LOINC 1.18-3.74 thou/cmm ) Abs. Lymph 1.57 LAB MONON(LOIN 0.27-0.70 thou/cmm C) Abs. High [place] 0.89 LAB EOSN(LOINC 0.00-0.31 thou/cmm ) Abs. Eosin 0.26 LAB BASON(LOIN 0.01-0.08 thou/cmm C) Abs. Baso 0.07 Performed By: #### CBCD1 #### [place] [address] BASIC PANEL Collected: 03/22/2018 Status: F Source: [facility] 2:21 AM HEALTH SYSTEM REPOSITORY TYPE CODE TESTS RESULT OUT OF REFERENCE UNITS RANGE LAB NA(LOINC) 136-145 mEq/L Sodium Blood 140 LAB K(LOINC) 3.5-5.1 mEq/L Potassium Blood 3.8 LAB CL(LOINC) 98-107 mEq/L Chloride Blood 104 LAB CO2(LOINC) 21-32 mEq/L CO2 Blood 28 LAB GLU(LOINC) 70-99 mg/dL Glucose High Blood 112 LAB BUN(LOINC) 7-18 mg/dL BUN Blood 16 LAB CREA(LOINC 0.51-0.95 mg/dL ) Creatinine Blood 0.77 LAB CA(LOINC) 8.5-10.1 mg/dL Calcium Blood 8.9 LAB ANGAP(LOIN 8-16 C) Anion Gap 12 Performed By: #### P8 #### [facility] [address] [place] [address] MDRD GFR Collected: 03/22/2018 Status: F Source: [facility] 2:21 AM HEALTH SYSTEM REPOSITORY TYPE CODE TESTS RESULT OUT OF RANGE REFERENCE UNITS LAB GFRFN(LOINC >60mL/min/1.73m ) 2 eGFR >60 Result Comment: If the patient is , multiply the result by 1.210. Performed By: #### GFR #### [facility] [address] [place] [address] ECU TROPONIN I Collected: 03/22/2018 Status: F Source: [facility] 2:21 AM HEALTH SYSTEM REPOSITORY TYPE CODE TESTS RESULT OUT OF REFERENCE UNITS RANGE LAB ERTRP(LOINC 0.015-0.045 ng/ml ) ECU Troponin I < 0.015 Performed By: #### ERTRP #### [facility] [address] [place] [address] CHEST 2 VIEWS Observed: 03/22/2018 Status: F Source: [facility] 2:16 AM HEALTH SYSTEM REPOSITORY Performed at [facility] APPROVED BY: WILLIAN ZEPEDA MD EXAMINATION: CHEST RADIOGRAPH (2 VIEW FRONTAL & LATERAL) CLINICAL HISTORY: Chest pain, right-sided jaw and neck pain MQ: XC2_5 Comparison: 02/07/2018 RESULT: Lines, tubes, and devices: None. Lungs and pleura: No consolidation. No lung mass. No pleural effusion. Right peripheral midlung nodular density, stable Cardiomediastinal silhouette: Normal cardiomediastinal silhouette. Other: . IMPRESSION: No acute radiographic abnormality. ED NOTE Observed: 03/22/2018 Status: COMPLETED Source: [facility] 2:07 AM [facility] REPOSITORY HNO ID: [id number] Author: Priscilla StringerRn) ANDRAE Atkins Service: Emergency Medicine Author Type: Registered Nurse Type: ED Notes Filed: 03/22/2018 2:07 AM Note Text: Pt placed on electronic device monitor, continuous pulse ox, and blood pressure cuff. tax examining technician notified that pt is ready for xray. ED PROV NOTE Observed: 03/22/2018 Status: COMPLETED Source: [place] 1:59 AM [facility] REPOSITORY HNO ID: [id number] Author: Gavin Moy DO Service: Emergency Medicine Author Type: Physician Type: ED Provider Notes Filed: 03/22/2018 9:34 PM Note Text: Attending Note I personally saw and examined the patient. I reviewed the resident's note. I agree with the resident's assessment and plan unless otherwise noted. This is a 67 year old female presenting with Jaw pain. Patient states she was preparing dinner this evening when she developed some aching throbbing pulsating discomfort in her jaw on the right. She states that she notices the symptoms to be worse when she exerts herself or is moving around. When she is at rest it is barely noticeable. No pain with chewing. No jaw claudication. No trauma. No fevers. No difficulty swallowing or breathing. No past similar episodes. No history of any coronary disease.. Physical Exam: Patient's afebrile vitals within normal limits HEENT PERRL, EOMI Oropharynx clear Neck nontender no crepitus Heart regular no murmurs rubs or gallops Lungs clear to auscultation bilaterally Abdomen soft nontender Extremities no edema good pulses sensation intact. No calf tenderness Plan labs including troponin, EKG which was nondiagnostic for acute ischemia, chest x-ray and plan for admission for serial cardiac enzymes Gavin Moy DO 03/22/18 2134 EKG (AK,AV,EU,FV,HL,SIMRAN,MM,SP) Observed: Status: F Source: [place] 03/22/2018 12:25 [facility] REPOSITORY NAME : PEACE CAMPA PID : [id number] : 1950 Gender : Female Race : ORD : [id number] Procedure Date : Mar 22 2018 00:25 Edit Date : Mar 22 2018 05:14 Diagnosis:NORMAL SINUS RHYTHM LEFT AXIS DEVIATION ABNORMAL ECG NO PREVIOUS ECGS AVAILABLE Confirmed by Meera Bar ([id number]) on 03/22/2018 5:14:48 AM Ventricular Rate : 82 BPM Atrial Rate : 82 BPM P-R Interval : 142 ms QRS Duration : 86 ms Q-T Interval : 364 ms QTC Calculation(Bezet) : 425 ms P [place] : 42 degrees R [place] : -41 degrees T [place] : 13 degrees Test Reason : Chest Pain Location : 4 : AKED EM Overread By : Meera Bar Editted By : Meera Bar Referred By : DEBBIE MALHOTRA Acquired by : PAT DORSEY Collected: 02/24/2018 Status: F Source: [facility] 9:15 AM HEALTH SYSTEM REPOSITORY TYPE CODE TESTS RESULT OUT OF REFERENCE UNITS RANGE LAB MNA(LOINC) 136-145 mEq/L Sodium Blood 140 LAB MK(LOINC) 3.5-5.1 mEq/L Potassium Blood 4.5 LAB MCL(LOINC) 98-107 mEq/L Chloride Blood 104 LAB MCO2(LOINC 21-32 mEq/L ) CO2 Blood 30 LAB MGLU(LOINC 70-99 mg/dL ) Glucose High Blood 100 LAB MBUN(LOINC 7-18 mg/dL ) BUN Blood 18 LAB MCREA(LOIN 0.51-0.95 mg/dL C) Creatinine Blood 0.84 LAB MCA(LOINC) 8.5-10.1 mg/dL Calcium Blood 9.2 LAB MANGP(LOIN 8-16 C) Anion Gap 11 LAB ALBM(LOINC 3.4-5.0 g/dL ) Albumin Blood 3.8 LAB MTP(LOINC) 6.4-8.2 g/dL Total Protein 7.7 LAB MAST(LOINC 15-46 U/L ) AST-SGOT Blood 19 LAB MALT(LOINC 12-78 U/L ) ALT-SGPT Blood 28 LAB MALKP(LOIN 46-116 U/L C) Alk Phosphatase 96 LAB MBILT(LOIN 0.2-1.0 mg/dL C) Total Bilirubin 0.4 Performed By: #### MP14 #### [place] [address] MDRD EGFR Collected: 02/24/2018 Status: F Source: [facility] 9:06 AM HEALTH SYSTEM REPOSITORY TYPE CODE TESTS RESULT OUT OF RANGE REFERENCE UNITS LAB MGFRF(LOINC >60mL/min/1.73m ) 2 eGFR >60 Result Comment: If the patient is , multiply the result by 1.210. Performed By: #### MGFR #### [place] [address] PROGRESS Observed: 02/17/2018 Status: COMPLETED Source: [facility] 9:05 AM [facility] REPOSITORY HNO ID: [id number] Author: Ra Warren Jr. Service: (none) Author Type: Physician Type: Progress Notes Filed: 02/17/2018 9:06 AM Note Text: ESTABLISHED PATIENT OFFICE VISIT HPI Peace Campa is a 67 year old female who presents ho RCC sp R robo partial 07/2016. Labs reviewed, normal. CXR shows known R sided lung nodule has increased in size and density. ?Had work up for this nodule 10 years ago. Nothing done at that time. ? 08/15/17 - no change in lung nodule, being followed by [facility] man 02/17/18 - no change in symptoms. Ct reviewed. Normal. cxr nodule stable LAB: Creatinine Date Value Ref Range Status 08/16/2017 0.76 0.51 - 0.95 mg/dL Final No results found for: PSA Glucose, Urine (mg/dL) Date Value 08/15/2017 neg Bilirubin, Urine (no units) Date Value 08/15/2017 neg Ketones, Urine (no units) Date Value 08/15/2017 neg Specific [place], Ur (no units) Date Value 08/15/2017 1.010 Hemoglobin/Blood,Ur (no units) Date Value 08/15/2017 trace pH, Urine (no units) Date Value 08/15/2017 6.5 Protein, Urine (mg/dL) Date Value 08/15/2017 neg Urobilinogen, Urine (EU) Date Value 08/15/2017 0.2 Nitrites (no units) Date Value 08/15/2017 neg Leukocytes (no units) Date Value 08/15/2017 moderate Color/Appearance (comment:) Date Value 08/15/2017 yelllow MEDICATIONS: Estriol, Bulk, 100 % powd Estradiol, Bulk, 100 % powd Progesterone, Bulk, 100 % powd Cholecalciferol, Vitamin D3, (VITAMIN D-3) 5,000 unit tab Take 5,000 Units by mouth once daily. VITAMIN B COMPLEX/FOLIC ACID (B COMPLEX 100 ORAL) Take by mouth. vit V-vkcknzzh-csu-calcium-D3 500 mg-500 mg -1,000 unit pwep Take by mouth. APPLE CIDER VINEGAR ORAL Take by mouth. Biotin 10,000 mcg cap Take 10,000 mcg by mouth once daily. ashwagandha root extract,bulk, 2.5 % powd BEARBERRY LEAF EXTRACT (UVA URSI LEAF FLUID EXTRACT [facility]) REVIEW OF SYSTEMS Review of Systems Constitutional: Negative. Respiratory: Negative. Cardiovascular: Negative. Gastrointestinal: Negative. Genitourinary: Negative. Skin: Negative. Neurological: Negative. Psychiatric/Behavioral: Negative. HISTORIES PAST MEDICAL HISTORY Diagnosis Date - Lung nodule found in 2006 or 2007- benign FAMILY HISTORY Problem Relation Age of Onset - Colon Cancer Father - other (PARKINSONS) Mother - other (PARKINSONS) Sister SOCIAL HISTORY Social History Substance Use Topics - Smoking status: Never Smoker - Smokeless tobacco: Never Used - Alcohol use No PHYSICAL EXAMINATION General appearance: Well appearing, alert, in no acute distress and well-hydrated, well nourished Skin: Skin color, texture, turgor normal, no suspicious rashes or lesions Respiratory:+ effort Cardiovascular: Not examined GI: Normal abdominal exam, Abdomen soft, non-tender. No masses, organomegaly Musculoskeletal: Negative Neuro: Negative Genitourinary: not examined Impression: (C64.9) Renal cell carcinoma, unspecified laterality (HCC) Plan: 1 year cmp now Ra Warren Jr, MD 02/17/2018 CNOV Observed: 02/17/2018 Status: COMPLETED Source: [facility] 8:45 AM [facility] REPOSITORY Office Visit (AKURGR) PEACE CAMPA ([id number]) 1950 F FERMIN Date Time Provider Department 02/17/18 8:45 AM RA WARREN JR During your visit today, we recorded the following information about you: Blood pressure Weight Height 118/72 77.1 kg 1.6 m Ra Warren Jr, MD 02/17/2018 9:06 AM Signed ESTABLISHED PATIENT OFFICE VISIT HPI Peace Campa is a 67 year old female who presents ho RCC sp R robo partial 07/2016. Labs reviewed, normal. CXR shows known R sided lung nodule has increased in size and density. ?Had work up for this nodule 10 years ago. Nothing done at that time. ? 08/15/17 - no change in lung nodule, being followed by [facility] man 02/17/18 - no change in symptoms. Ct reviewed. Normal. cxr nodule stable LAB: Creatinine Date Value Ref Range Status 08/16/2017 0.76 0.51 - 0.95 mg/dL Final No results found for: PSA Glucose, Urine (mg/dL) Date Value 08/15/2017 neg Bilirubin, Urine (no units) Date Value 08/15/2017 neg Ketones, Urine (no units) Date Value 08/15/2017 neg Specific [place], Ur (no units) Date Value 08/15/2017 1.010 Hemoglobin/Blood,Ur (no units) Date Value 08/15/2017 trace pH, Urine (no units) Date Value 08/15/2017 6.5 Protein, Urine (mg/dL) Date Value 08/15/2017 neg Urobilinogen, Urine (EU) Date Value 08/15/2017 0.2 Nitrites (no units) Date Value 08/15/2017 neg Leukocytes (no units) Date Value 08/15/2017 moderate Color/Appearance (comment:) Date Value 08/15/2017 yelllow MEDICATIONS: Estriol, Bulk, 100 % powd Estradiol, Bulk, 100 % powd Progesterone, Bulk, 100 % powd Cholecalciferol, Vitamin D3, (VITAMIN D-3) 5,000 unit tab Take 5,000 Units by mouth once daily. VITAMIN B COMPLEX/FOLIC ACID (B COMPLEX 100 ORAL) Take by mouth. vit V-pfjalcgw-ukf-calcium-D3 500 mg-500 mg -1,000 unit pwep Take by mouth. APPLE CIDER VINEGAR ORAL Take by mouth. Biotin 10,000 mcg cap Take 10,000 mcg by mouth once daily. ashwagandha root extract,bulk, 2.5 % powd BEARBERRY LEAF EXTRACT (UVA URSI LEAF FLUID EXTRACT [facility]) REVIEW OF SYSTEMS Review of Systems Constitutional: Negative. Respiratory: Negative. Cardiovascular: Negative. Gastrointestinal: Negative. Genitourinary: Negative. Skin: Negative. Neurological: Negative. Psychiatric/Behavioral: Negative. HISTORIES PAST MEDICAL HISTORY Diagnosis Date - Lung nodule found in 2006 or 2007- benign FAMILY HISTORY Problem Relation Age of Onset - Colon Cancer Father - other (PARKINSONS) Mother - other (PARKINSONS) Sister SOCIAL HISTORY Social History Substance Use Topics - Smoking status: Never Smoker - Smokeless tobacco: Never Used - Alcohol use No PHYSICAL EXAMINATION General appearance: Well appearing, alert, in no acute distress and well-hydrated, well nourished Skin: Skin color, texture, turgor normal, no suspicious rashes or lesions Respiratory:+ effort Cardiovascular: Not examined GI: Normal abdominal exam, Abdomen soft, non-tender. No masses, organomegaly Musculoskeletal: Negative Neuro: Negative Genitourinary: not examined Impression: (C64.9) Renal cell carcinoma, unspecified laterality (HCC) Plan: 1 year cmp now Ra Warren Jr, MD 02/17/2018 Referring Provider: AVILA CARREON [[id number]] Allergies As of Date: 02/17/2018 Noted Allergy Reaction SULFA (SULFONAMIDE ANTIBIOTICS) 12/07/2015 16 - Unknown Date Reviewed: 02/17/2018 Reviewed by: Ra Warren Jr. - Fully Assessed Reason for Visit: Follow Up [171] Visit Diagnosis:Renal cell carcinoma, unspecified laterality (HCC) [C64.9] Order(s):COMP METABOLIC PANEL [SQCMP] Order #: [id number] FUTURE Prescriptions as of 02/17/2018 Sig: ESTRIOL (BULK) 100 % POWDER ESTRADIOL (BULK) 100 % POWDER PROGESTERONE (BULK) 100 % POW* CHOLECALCIFEROL (VITAMIN D3) * Take 5,000 Units by mouth onc* B COMPLEX 100 ORAL Take by mouth. VIT C 500 YP-PAVHUYRG-TTN-FERMIN* Take by mouth. APPLE CIDER VINEGAR ORAL Take by mouth. 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 Follow-up and Disposition History Recorded Encounter Status:Closed by RA WARREN MD on 02/17/18 CNPN Observed: 02/11/2018 Status: COMPLETED Source: [place] 12:00 AM [facility] REPOSITORY Telephone (PULMGR) PEACE CAMPA ([id number]) 1950 F FERMIN Date Time Provider Department 02/11/18 KETAN ECHEVERRIA PULMGR During your visit today, we recorded the following information about you: Stephanie Naranjo RN, RN 02/11/2018 8:41 AM Signed Would tell her right lung nodule appears unchanged and has been present for 10 years. ?(per Dr Echeverria) left for patient to call me back for results of CXR. ANDRAE Fink RN, RN 02/11/2018 1:54 PM Signed I called patient back and reviewed result below. Confirmed upcoming appt for 02/17/2018. Stephanie Naranjo RN Allergies As of Date: 02/11/2018 Noted Allergy Reaction SULFA (SULFONAMIDE ANTIBIOTICS) 12/07/2015 16 - Unknown Date Reviewed: 08/15/2017 Reviewed by: Ra Warren Jr. - Fully Assessed Reason for Visit: Results [95] Prescriptions as of 02/11/2018 Sig: APPLE CIDER VINEGAR ORAL Take by mouth. BIOTIN 10,000 MCG CAPSULE Take 10,000 mcg by mouth once* ESTRIOL (BULK) 100 % POWDER ESTRADIOL (BULK) 100 % POWDER PROGESTERONE (BULK) 100 % POW* ASHWAGANDHA ROOT EXTRACT (BUL* UVA URSI LEAF FLUID EXTRACT M* CHOLECALCIFEROL (VITAMIN D3) * Take 5,000 Units by mouth onc* B COMPLEX 100 ORAL Take by mouth. VIT C 500 RN-BHLOLZAV-XZF-FERMIN* Take by mouth. 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 Lungs and pleura: Nodule along the periphery of the mid right lung has been present since the prior CT study from 10 years ago. No pneumonia, congestion or sizable effusion is present. Cardiomediastinal silhouette: Normal cardiomediastinal silhouette. Other: No acute bony abnormality. IMPRESSION: No acute radiographic abnormality. US DVT LOWER LEFT Observed: 01/27/2018 Status: F Source: [employer] 2:44 PM HEALTH SYSTEM REPOSITORY Performed at [facility] APPROVED BY: AMANDO REDDY MD LEFT LOWER EXTREMITY DEEP VENOUS ULTRASOUND WITH DOPPLER IMAGING CLINICAL HISTORY: Left leg discomfort COMPARISON: None TECHNIQUE: Amor scale with compression maneuvers, Color Doppler and Spectral Doppler at rest and with augmentation of the left distal external iliac, common femoral, femoral and popliteal veins was per formed. Espitia scale with compression maneuvers of the peroneal and posterior tibial veins was performed. The great saphenous vein was imaged in espitia scale with compression maneuvers at their insertion t o the deep system. The contralateral external iliac vein and common femoral vein were imaged for comparison. Images were obtained and stored in a permanent archive. RESULT: LEFT LOWER EXTREMITY PROXIMAL DEEP VEINS Distal External Iliac and Common Femoral Veins: Compression: Normal Doppler: Normal, spontaneous respirophasic flow Normal response to augmentation Femoral vein: Compression: Normal Doppler: Normal, spontaneous flow Normal response to augmentation Popliteal vein: Compression: Normal Doppler: Normal, spontaneous flow Normal response to augmentation CALF DEEP VEINS Peroneal veins: Normal compression Posterior tibial veins: Normal compression SUPERFICIAL VEINS Great saphenous: Patent and compressible at insertion into common femoral vein; not otherwise assessed. RIGHT LOWER EXTREMITY Distal External Iliac and Common Femoral Veins: Compression: Normal Doppler: Normal, spontaneous respirophasic flow Normal response to augmentation IMPRESSION: NEGATIVE STUDY FOR ACUTE PROXIMAL DVT IN THE LEFT LOWER EXTREMITY. NEGATIVE STUDY FOR ACUTE CALF DVT IN THE LEFT LOWER EXTREMITY. NEGATIVE STUDY FOR SUPERFICIAL THROMBOPHLEBITIS IN THE LEFT LOWER EXTREMITY OFFICE VISIT Observed: 01/22/2018 Status: F Source: [place] 11:41 AM [facility] [address] [place] [address] OFFICE VISIT Date of Service: 01/21/18 MR#: [id number] Acct: [id number] Name: PEACE CAMPA Rep #: [id number] : 1950 Provider: PARVEZ Carreon Age/Sex: 67/F Location: [facility] Status: Signed Intake Vital Signs01/21/18 Height 5 ft 3 in 01/21/18 Weight: 180 lb Intake Visit Reasons: RX REFILLS Allergies sulfamethoxazole [From Bactrim] Adverse Reaction (Unknown, Unverified 01/21/18 17:49) unknown trimethoprim [From Bactrim] Adverse Reaction (Unknown, Unverified 01/21/18 17:49) unknown Medications Bi-est 0.625mg/0.5 ml 0.5 ml TOPICAL QDAY #30 01/21/18 [Rx Confirmed 01/21/18] apple cals PO 01/21/18 [History Confirmed 01/21/18] progesterone 0.25 ml TOPICAL BID #30 01/21/18 [Rx Confirmed 01/21/18] sour chin tablet PO .2 a day 01/21/18 [History Confirmed 01/21/18] PFSH Medical History Headache (Acute) Kidney stone (Acute) Kidney tumor (Acute) Sore on toe (Acute) parathyroid removed 1 (Acute) Surgical History History of oophorectomy (Acute) History of partial nephrectomy (Acute) Family History Father Colon cancer Other CVA (cerebral vascular accident) Diabetes Hypertension Pancreas cancer HPI HPI (General) HPI HPI: PEACE CAMPA, is a 67 F who presents to the office today for lump behind the L lower leg mostly when on her feet all day . The lump has become painful and is palpable to her when irritated Has felt the lump since 1998 but never could get a Dr to feel it or take her seriously . 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 ROS Musc Musculoskeletal: Positive for other (behind L knee uper calf palpable lump varicosity) Exam Const Constitutional: Yes cooperative, Yes healthy appearing Orientation: Yes alert, awake and oriented x3 HENMT Ear: Yes hearing grossly normal bilaterally Neck Neck: normal visual inspection Thyroid: thyroid normal Eyes General: Yes appearance normal, both eyes and all related structures Chest Chest palpation AND inspection: Yes normal inspection of the chest Resp Effort AND Inspection: Yes normal respiratory effort Auscultation: Yes clear to auscultation bilaterally Cardio Palpitation: Yes normal PMI Rate: Yes regular rate Rhythm: Yes regular rhythm GI Inspection: Yes normal to inspection Auscultation: Yes normal bowel sounds Musc Cervical Spine: Yes cervical ROM normal Thoracic/Lumbar Spine: Yes thoracic and lumbar spine normal to inspection Skin General: other (lower ext varicosities) Extrem General: Yes no calf tenderness and Varicosities (bulging on the L upper calf slightly reddened generalized edema of legs) Neuro General: Yes alert and oriented x3 Psych Appearance: Positive grossly normal Mood: Positive congruent mood Affect: Positive normal affect Assessment AND Plan Problems 1. Phlebitis and thrombophlebitis I80.9 2. Deep vein thrombophlebitis of left leg I80.202 3. Vasomotor flushing R23.2 4. Menopausal symptom N95.1 Patient Instructions Get the US of the L leg COREY and will call with the results Start wearing LISSETH hose 10 - 15 mmHG measure the calf at the fattest portion of the calf and that is the sie to buy work up to a 20 -30 mm HG LISSETH hose and start putting them on before getting out of bed in the morning Medications New: 01/22/18 1141 <Electronically signed by Avila LONGORIA> Date Avila LONGORIA CC: CT ABDOMEN WITH Observed: 08/23/2017 Status: F Source: [place] [employer] CONTRAST [id number] 10:21 AM [facility] REPOSITORY Performed at [facility] APPROVED BY: Casey Sehpherd MD EXAMINATION: CT ABDOMEN WITH IV CONTRAST CLINICAL HISTORY: Follow-up renal mass. Status post resection of lesion from lower pole right kidney. TECHNIQUE: CT of the abdomen was performed using standard technique, scanning from just above the dome of the diaphragm to the iliac crest. Sagittal and coronal reconstructions were performed. MQ: [id number] Contrast: IV: 150 ml of Omnipaque 300 Oral: None. CT Radiation dose: Integrated Dose-length product (DLP) for this visit = 326 mGy*cm. CT Dose Reduction Employed: Automated exposure control (AEC) was used. COMPARISON: MRI dated 04/30/2016 RESULT: Liver: 12 mm hypodense nodule inferior aspect right lobe of the liver consistent with cyst. No other focal lesions in the liver. Biliary: Unremarkable. Spleen: Unremarkable. Pancreas: Unremarkable. Adrenals:Stable 9 mm fatty nodule left adrenal gland. Right adrenal gland unremarkable. Kidneys: Right: Resection defect seen lower pole right kidney. 13 mm hypodensity adjacent to the resection site may represent residual of previously noted 3.4 cm cyst. Stable 12 mm cyst midpole right kidney. Stable 2.5 cm cyst upper pole right kidney. Left: Multifocal scarring upper pole left kidney. Stable 2.1 cm cyst lateral midpole. Multifocal scarring in the lower pole left kidney. Nonobstructing 2 mm stone lower pole. No hydronephrosis. GI tract: No dilation or wall thickening. Small to moderate size sliding-type hiatal hernia. Large duodenal diverticulum. Diffuse diverticulosis of the distal descending colon. Lymph nodes: No abdominal lymphadenopathy. Mesentery/Peritoneum: No ascites or mass. Retroperitoneum: No significant additional findings. Bony structures: Unremarkable. Lower thorax: No significant additional findings. IMPRESSION: Status post resection of lesion from lower pole right kidney. No evidence for recurrent disease. Stable appearance of cysts in the remainder of both kidneys. Scarring in the left kidney. Cyst noted in the lower portion right lobe of the liver. Stable. CREATININE BLOOD Collected: 08/16/2017 Status: F Source: [facility] 9:22 AM [facility] REPOSITORY TYPE CODE TESTS RESULT OUT OF REFERENCE UNITS RANGE LAB CREA(LOINC 0.51-0.95 mg/dL ) Creatinine Blood 0.76 Performed By: #### CREA #### [place] [address] MDRD GFR Collected: 08/16/2017 Status: F Source: [facility] 9:22 AM HEALTH SYSTEM REPOSITORY TYPE CODE TESTS RESULT OUT OF RANGE REFERENCE UNITS LAB GFRFN(LOINC >60mL/min/1.73m ) 2 eGFR >60 Result Comment: If the patient is , multiply the result by 1.210. Performed By: #### GFR #### [place] [address] PROGRESS Observed: 08/15/2017 Status: COMPLETED Source: [place] 9:10 AM CL[facility] OTHER [facility]AMPUS REPOSITORY O ID: [id number] Author: Ra Warren Jr. Service: (none) Author Type: Physician Type: Progress Notes Filed: 08/15/2017 9:11 AM Note Text: ESTABLISHED PATIENT OFFICE VISIT HPI Peace Campa is a 67 year old female who presents ho RCC sp R robo partial 07/2016. Labs reviewed, normal. CXR shows known R sided lung nodule has increased in size and density. Had work up for this nodule 10 years ago. Nothing done at that time. 08/15/17 - no change in lung nodule, being followed by [facility] LAB: Creatinine Date Value Ref Range Status 01/18/2017 0.71 0.51 - 0.95 mg/dL Final No results found for: PSA Glucose, Urine (mg/dL) Date Value 02/08/2017 neg Bilirubin, Urine (no units) Date Value 02/08/2017 neg Ketones, Urine (no units) Date Value 02/08/2017 neg Specific [place], Ur (no units) Date Value 02/08/2017 1.015 Hemoglobin/Blood,Ur (no units) Date Value 02/08/2017 neg pH, Urine (no units) Date Value 02/08/2017 7.0 Protein, Urine (mg/dL) Date Value 02/08/2017 neg Urobilinogen, Urine (EU) Date Value 02/08/2017 0.2 Nitrites (no units) Date Value 02/08/2017 neg Leukocytes (no units) Date Value 02/08/2017 moderate Color/Appearance (comment:) Date Value 02/08/2017 yellow MEDICATIONS: APPLE CIDER VINEGAR ORAL Take by mouth. Biotin 10,000 mcg cap Take 10,000 mcg by mouth once daily. Estriol, Bulk, 100 % powd Estradiol, Bulk, 100 % powd Progesterone, Bulk, 100 % powd ashwagandha root extract,bulk, 2.5 % powd BEARBERRY LEAF EXTRACT (UVA URSI LEAF FLUID EXTRACT [facility]) Cholecalciferol, Vitamin D3, (VITAMIN D-3) 5,000 unit tab Take 5,000 Units by mouth once daily. VITAMIN B COMPLEX/FOLIC ACID (B COMPLEX 100 ORAL) Take by mouth. vit W-bfsalayl-ypm-calcium-D3 500 mg-500 mg -1,000 unit pwep Take by mouth. REVIEW OF SYSTEMS Review of Systems Constitutional: Negative. Respiratory: Negative. Cardiovascular: Negative. Gastrointestinal: Negative. Genitourinary: Negative. Skin: Negative. Neurological: Negative. Psychiatric/Behavioral: Negative. HISTORIES PAST MEDICAL HISTORY Diagnosis Date - Lung nodule found in 2006 or 2007- benign FAMILY HISTORY Problem Relation Age of Onset - Colon Cancer Father - PARKINSONS [OTHER] Mother - PARKINSONS [OTHER] Sister SOCIAL HISTORY Social History Substance Use Topics - Smoking status: Never Smoker - Smokeless tobacco: Never Used - Alcohol use No PHYSICAL EXAMINATION General appearance: Well appearing, alert, in no acute distress, well-hydrated, well nourished Skin: Skin color, texture, turgor normal, no suspicious rashes or lesions Respiratory:+ effort Cardiovascular: Not examined GI: Normal abdominal exam, Abdomen soft, non-tender. No masses, organomegaly Musculoskeletal: Negative Neuro: Negative Genitourinary: not examined Impression: (C64.9) Renal cell carcinoma, unspecified laterality (HCC) (primary encounter diagnosis) Plan: CT abdomen now, let know results Fu 6 months Ra Warren Jr, MD 08/15/2017 CNOV Observed: 08/15/2017 Status: COMPLETED Source: [place] 8:45 AM [facility]IN[facility] OTHER CAMPUS REPOSITORY Office Visit (AKURFL) PEACE CAMPA ([id number]) 1950 F [facility] Date Time Provider Department 08/15/17 8:45 AM RA WARREN JR AKURFL During your visit today, we recorded the following information about you: Weight Height 77.1 kg 1.6 m Ra Warren Jr, MD 08/15/2017 9:11 AM Signed ESTABLISHED PATIENT OFFICE VISIT HPI Peace Campa is a 67 year old female who presents ho RCC sp R robo partial 07/2016. Labs reviewed, normal. CXR shows known R sided lung nodule has increased in size and density. Had work up for this nodule 10 years ago. Nothing done at that time. 08/15/17 - no change in lung nodule, being followed by [facility] LAB: Creatinine Date Value Ref Range Status 01/18/2017 0.71 0.51 - 0.95 mg/dL Final No results found for: PSA Glucose, Urine (mg/dL) Date Value 02/08/2017 neg Bilirubin, Urine (no units) Date Value 02/08/2017 neg Ketones, Urine (no units) Date Value 02/08/2017 neg Specific [place], Ur (no units) Date Value 02/08/2017 1.015 Hemoglobin/Blood,Ur (no units) Date Value 02/08/2017 neg pH, Urine (no units) Date Value 02/08/2017 7.0 Protein, Urine (mg/dL) Date Value 02/08/2017 neg Urobilinogen, Urine (EU) Date Value 02/08/2017 0.2 Nitrites (no units) Date Value 02/08/2017 neg Leukocytes (no units) Date Value 02/08/2017 moderate Color/Appearance (comment:) Date Value 02/08/2017 yellow MEDICATIONS: APPLE CIDER VINEGAR ORAL Take by mouth. Biotin 10,000 mcg cap Take 10,000 mcg by mouth once daily. Estriol, Bulk, 100 % powd Estradiol, Bulk, 100 % powd Progesterone, Bulk, 100 % powd ashwagandha root extract,bulk, 2.5 % powd BEARBERRY LEAF EXTRACT (UVA URSI LEAF FLUID EXTRACT [facility]) Cholecalciferol, Vitamin D3, (VITAMIN D-3) 5,000 unit tab Take 5,000 Units by mouth once daily. VITAMIN B COMPLEX/FOLIC ACID (B COMPLEX 100 ORAL) Take by mouth. vit M-duuohnxz-sch-calcium-D3 500 mg-500 mg -1,000 unit pwep Take by mouth. REVIEW OF SYSTEMS Review of Systems Constitutional: Negative. Respiratory: Negative. Cardiovascular: Negative. Gastrointestinal: Negative. Genitourinary: Negative. Skin: Negative. Neurological: Negative. Psychiatric/Behavioral: Negative. HISTORIES PAST MEDICAL HISTORY Diagnosis Date - Lung nodule found in 2006 or 2007- benign FAMILY HISTORY Problem Relation Age of Onset - Colon Cancer Father - PARKINSONS [OTHER] Mother - PARKINSONS [OTHER] Sister SOCIAL HISTORY Social History Substance Use Topics - Smoking status: Never Smoker - Smokeless tobacco: Never Used - Alcohol use No PHYSICAL EXAMINATION General appearance: Well appearing, alert, in no acute distress, well-hydrated, well nourished Skin: Skin color, texture, turgor normal, no suspicious rashes or lesions Respiratory:+ effort Cardiovascular: Not examined GI: Normal abdominal exam, Abdomen soft, non-tender. No masses, organomegaly Musculoskeletal: Negative Neuro: Negative Genitourinary: not examined Impression: (C64.9) Renal cell carcinoma, unspecified laterality (HCC) (primary encounter diagnosis) Plan: CT abdomen now, let know results Fu 6 months Ra Warren Jr, MD 08/15/2017 Referring Provider: AVILA CARREON [[id number]] Allergies As of Date: 08/15/2017 Noted Allergy Reaction SULFA (SULFONAMIDE ANTIBIOTICS) 12/07/2015 16 - Unknown Date Reviewed: 08/15/2017 Reviewed by: Ra Warren Jr. - Fully Assessed Primary Visit Diagnosis:Renal cell carcinoma, unspecified laterality (HCC) [C64.9] Order(s):UA DIP B/O [[id number]] Order #: [id number] CREATININE BLD [SQCRET] Order #: [id number] FUTURE CT ABDOMEN W IVCON [[id number]] Order #: [id number] FUTURE Prescriptions as of 08/15/2017 Sig: APPLE CIDER VINEGAR ORAL Take by mouth. BIOTIN 10,000 MCG CAPSULE Take 10,000 mcg by mouth once* ESTRIOL (BULK) 100 % POWDER ESTRADIOL (BULK) 100 % POWDER PROGESTERONE (BULK) 100 % POW* ASHWAGANDHA ROOT EXTRACT (BUL* UVA URSI LEAF FLUID EXTRACT M* CHOLECALCIFEROL (VITAMIN D3) * Take 5,000 Units by mouth onc* B COMPLEX 100 ORAL Take by mouth. VIT C 500 XY-LAEMFYES-KSY-FERMIN* Take by mouth. Problem List As Of Date 08/15/2017 Noted Resolved Axillary mass [R22.30] INVALID FOR* Mass of upper extremity [R22.30] INVALID FOR* Lipoma of axilla [D17.20] INVALID FOR* Renal cell carcinoma (HCC) [C64.9] INVALID FOR* Disposition: Return in about 6 months (around 02/15/2018). Follow-up and Disposition History Recorded Encounter Status:Closed by RA WARREN MD on 08/15/17 PROGRESS Observed: 08/05/2017 Status: COMPLETED Source: [place] 9:59 AM [facility] REPOSITORY HNO ID: [id number] Author: Ketan Echeverria Service: (none) Author Type: Physician Type: Progress Notes Filed: 08/05/2017 10:10 AM Note Text: ESTABLISHED PATIENT FOLLOW-UP CONSULT SERVICE DATE: 08/05/2017 PRIMARY CARE PHYSICIAN: Avila Carreon NP SUBJECTIVE CHIEF COMPLAINT: Follow up RLL nodule HPI: Peace Campa is a 67 year old female here for follow up appointment for an 18mm RLL nodule known since 2006 and had FOB with TBBxs showing granulomatous changes. after last visit of 03/21/17. She is feeling well and has no complaints today. Last CXR of 07/19 showed no acute changes compared to 01/18/17 film. She is a lifelong nonsmoker. SOCIAL HISTORY: Social History Substance Use Topics - Smoking status: Never Smoker - Smokeless tobacco: Never Used - Alcohol use No MEDICATIONS: Prior to Admission Medications (Not in a hospital admission) CURRENT ALLERGIES: ALLERGIES Allergen Reactions - Sulfa (Sulfonamide * Unknown COMPLETE REVIEW OF SYSTEMS: REVIEW OF SYSTEMS Constitutional:Well developed no acute distress throughout the interview. No dyspnea throughout the interview; not acutely ill. No fevers, chills, night sweats HEENT: No for frequent or significant headaches, changes in hearing or vision, nose bleeds or other nasal problems, normal pharynx. Good voice. Denies lymphadenopathy RESPIRATORY: No dyspnea, wheezing, Shortness of breath, hemoptysis, excessive phlegm, nonpurulent, pleuritic pain, MIGUEL ANGEL: No apnea, hypersomnolence, snoring, unusual breathing patterns during sleep, nocturia, frequent awakenings, morning fatigue CARDIOVASCULAR: No palpitations, heart failure, edema, chest pain, stents GASTROINTESTINAL: No abdominal discomfort, blood in stools or black stools or change in bowel habits, no significant Weight stable. No liver failure GENITOURINARY: No history of dysuria, frequency or incontinence, mass, hematuria FACULTY CRIMINAL JUSTICE: Not reviewed MUSCULOSKELETAL: No for joint pain, joint swelling, muscle aches, bone pain. NEUROLOGIC: No focal numbness or weakness, headaches, gait disturbance , dizziness, syncope, recent cva. SKIN: No for lesions, rash, itching and jaundice PSYCHIATRIC: No sleep disturbance, mood disorder, depression, manic episodes and recent psychosocial stressors. HEMATOLOGIC/LYMPHATIC/IMMUNOLOGIC: No anemia, hx lymphoma, bleeding or clotting issues. Denies bleeding diathesis. ENDOCRINE: No for cold or heat intolerance, polyuria, polydipsia and goiter. denies thyroid issues. Fatigue none The remainder of the ROS was negative. OBJECTIVE PHYSICAL EXAMINATION: VITAL SIGNS: BP 162/75 Pulse 93 Resp 16 Ht 5' 3 (1.60m) Wt 175 lb 12.8 oz (79.7kg) SpO2 98[room air]% BMI 31.15 kg/(m2). General appearance: Well-developed well-nourished.Age appropriate female. Cordial. Comprehends well. Skin: Normal turgor. Not pallorous. Not diaphoretic. No jaundice. No scars Eyes: Pupils equally reactive to light. Midline. No jaundice. Vision reasonable grossly. ENT: No palpable lymphadenopathy. Hearing intact. Normocephalic. no neck scar. No thyromegaly. False upper and fair lower dentition. No macroglossia. Grade II airway. Heme/Lymph: No significant adenopathy. Supple neck. Negative JVD in the setting position Lungs: Yes Clear to auscultation. Decent inspiratory capacity. No overt wheeze. No significant hyperinflation. No fibrotic rales. No pleural rub. Heart: regular rate and rhythm. Normal heart tones. No murmur heard.. No peripheral edema. Normal P2 . Good perfusion. No rub or gallop. ABD: Abdomen soft, non-tender. Bowel sounds normal. No masses, organomegaly. Normal girth, No guarding. No bruits. Musculoskeletal: Abnormal gait. No limp. Normal ambulation. Looks comfortable with walking. Extremities normal. No deformities or skin discoloration. Good capillary refill PSYCH: Alert. Responsive. Seems to comprehend reasonably well. Interactive. Yes engaged and.good recall. Neuro: Nonfocal. Alert. Oriented. Speech intact. No gross cerebellar dysfunction. Gait observed as above. No tremor. Cranial nerves II - XII grossly intact. Sensory and motor function grossly within normal limits. DATA: Diagnostic tests reviewed for today's visit, films/specimens were personally reviewed by me: Chest xray: 07/19/17:IMPRESSION: ? 18 mm right lower lobe nodular opacity appears slightly more solid and confluent compared to radiographs dated 07/16/2006. ?Chest CT would be recommended to evaluate for differences in cross-sectional features. No change in overall size of nodule compared to 2006. ASSESSMENT 1. Stable unchanged 18mm RLL lung nodule compared to 2. Lifelong nonsmoker 3. S/P partial right nephrectomy in for RCC--no adjuvant Rx needed. 4. Noncaseating granulomatous lung nodules in 08/2006 PLAN: IMPRESSION: ? 18 mm right lower lobe nodular opacity appears slightly more solid and confluent compared to radiographs dated 07/16/2006. ?Chest CT would be recommended to evaluate for differences in cross-sectional features. Copy to Referring physician Thank you for allowing me to participate in this patient's care. SIGNATURE: Ketan Echeverria MD PATIENT NAME: Peace Tiwariner DATE: August 05, 2017 TIME: 9:59 AM PAGER/CONTACT #: [phone] NETO Observed: 08/05/2017 Status: COMPLETED Source: [place] 9:30 AM [facility] REPOSITORY Office Visit (PULMGR) PEACE CAMPA ([id number]) 1950 [place] Date Time Provider Department 08/05/17 9:30 AM KETAN ECHEVERRIA PULMGR During your visit today, we recorded the following information about you: Pulse Respiration Blood pressure Weight 93/minute 16/minute 162/75 79.7 kg Height 1.6 m Ketan Echeverria MD 08/05/2017 9:59 AM Signed No change in the RLL 18mm nodule compared to film of 01/18/17 and will repeat CXR in 6-8 months and see her back in the office in 6-9 months. Discussed to call if she notices any respiratory or chest- related changes. Follow up in 6-9 months after next CXR. Ketan Echeverria MD 08/05/2017 10:10 AM Signed ESTABLISHED PATIENT FOLLOW-UP CONSULT SERVICE DATE: 08/05/2017 PRIMARY CARE PHYSICIAN: Avila Carreon NP SUBJECTIVE CHIEF COMPLAINT: Follow up RLL nodule HPI: Peace Campa is a 67 year old female here for follow up appointment for an 18mm RLL nodule known since 2006 and had FOB with TBBxs showing granulomatous changes. after last visit of 03/21/17. She is feeling well and has no complaints today. Last CXR of 07/19 showed no acute changes compared to 01/18/17 film. She is a lifelong nonsmoker. SOCIAL HISTORY: Social History Substance Use Topics - Smoking status: Never Smoker - Smokeless tobacco: Never Used - Alcohol use No MEDICATIONS: Prior to Admission Medications (Not in a hospital admission) CURRENT ALLERGIES: ALLERGIES Allergen Reactions - Sulfa (Sulfonamide * Unknown COMPLETE REVIEW OF SYSTEMS: REVIEW OF SYSTEMS Constitutional:Well developed no acute distress throughout the interview. No dyspnea throughout the interview; not acutely ill. No fevers, chills, night sweats HEENT: No for frequent or significant headaches, changes in hearing or vision, nose bleeds or other nasal problems, normal pharynx. Good voice. Denies lymphadenopathy RESPIRATORY: No dyspnea, wheezing, Shortness of breath, hemoptysis, excessive phlegm, nonpurulent, pleuritic pain, MIGUEL ANGLE: No apnea, hypersomnolence, snoring, unusual breathing patterns during sleep, nocturia, frequent awakenings, morning fatigue CARDIOVASCULAR: No palpitations, heart failure, edema, chest pain, stents GASTROINTESTINAL: No abdominal discomfort, blood in stools or black stools or change in bowel habits, no significant Weight stable. No liver failure GENITOURINARY: No history of dysuria, frequency or incontinence, mass, hematuria FACULTY CRIMINAL JUSTICE: Not reviewed MUSCULOSKELETAL: No for joint pain, joint swelling, muscle aches, bone pain. NEUROLOGIC: No focal numbness or weakness, headaches, gait disturbance , dizziness, syncope, recent cva. SKIN: No for lesions, rash, itching and jaundice PSYCHIATRIC: No sleep disturbance, mood disorder, depression, manic episodes and recent psychosocial stressors. HEMATOLOGIC/LYMPHATIC/IMMUNOLOGIC: No anemia, hx lymphoma, bleeding or clotting issues. Denies bleeding diathesis. ENDOCRINE: No for cold or heat intolerance, polyuria, polydipsia and goiter. denies thyroid issues. Fatigue none The remainder of the ROS was negative. OBJECTIVE PHYSICAL EXAMINATION: VITAL SIGNS: BP 162/75 Pulse 93 Resp 16 Ht 5' 3ANDquot; (1.60m) Wt 175 lb 12.8 oz (79.7kg) SpO2 98[room air]% BMI 31.15 kg/(m2). General appearance: Well-developed well-nourished.Age appropriate female. Cordial. Comprehends well. Skin: Normal turgor. Not pallorous. Not diaphoretic. No jaundice. No scars Eyes: Pupils equally reactive to light. Midline. No jaundice. Vision reasonable grossly. ENT: No palpable lymphadenopathy. Hearing intact. Normocephalic. no neck scar. No thyromegaly. False upper and fair lower dentition. No macroglossia. Grade II airway. Heme/Lymph: No significant adenopathy. Supple neck. Negative JVD in the setting position Lungs: Yes Clear to auscultation. Decent inspiratory capacity. No overt wheeze. No significant hyperinflation. No fibrotic rales. No pleural rub. Heart: regular rate and rhythm. Normal heart tones. No murmur heard.. No peripheral edema. Normal P2 . Good perfusion. No rub or gallop. ABD: Abdomen soft, non-tender. Bowel sounds normal. No masses, organomegaly. Normal girth, No guarding. No bruits. Musculoskeletal: Abnormal gait. No limp. Normal ambulation. Looks comfortable with walking. Extremities normal. No deformities or skin discoloration. Good capillary refill PSYCH: Alert. Responsive. Seems to comprehend reasonably well. Interactive. Yes engaged and.good recall. Neuro: Nonfocal. Alert. Oriented. Speech intact. No gross cerebellar dysfunction. Gait observed as above. No tremor. Cranial nerves II - XII grossly intact. Sensory and motor function grossly within normal limits. DATA: Diagnostic tests reviewed for today's visit, films/specimens were personally reviewed by me: Chest xray: 07/19/17:IMPRESSION: ? 18 mm right lower lobe nodular opacity appears slightly more solid and confluent compared to radiographs dated 07/16/2006. ?Chest CT would be recommended to evaluate for differences in cross-sectional features. No change in overall size of nodule compared to 2006. ASSESSMENT 1. Stable unchanged 18mm RLL lung nodule compared to 2. Lifelong nonsmoker 3. S/P partial right nephrectomy in for RCC--no adjuvant Rx needed. 4. Noncaseating granulomatous lung nodules in 08/2006 PLAN: IMPRESSION: ? 18 mm right lower lobe nodular opacity appears slightly more solid and confluent compared to radiographs dated 07/16/2006. ?Chest CT would be recommended to evaluate for differences in cross-sectional features. Copy to Referring physician Thank you for allowing me to participate in this patient's care. SIGNATURE: Ketan Echeverria MD PATIENT NAME: Peace Campa DATE: August 05, 2017 TIME: 9:59 AM PAGER/CONTACT #: [phone] Referring Provider: RA WARREN JR [[id number]] Allergies As of Date: 08/05/2017 Noted Allergy Reaction SULFA (SULFONAMIDE ANTIBIOTICS) 12/07/2015 16 - Unknown Date Reviewed: 08/05/2017 Reviewed by: Ketan Echeverria - Fully Assessed Reason for Visit: Recheck [92] Cmt: chest x-ray follow up. Primary Visit Diagnosis:Nodule of right lung [R91.1] Order(s):XR CHEST 2V FRONTAL/LAT [[id number]] Order #: [id number] FUTURE Prescriptions as of 08/05/2017 Sig: BIOTIN 10,000 MCG CAPSULE Take 10,000 mcg by mouth once* ESTRADIOL (BULK) 100 % POWDER PROGESTERONE (BULK) 100 % POW* CHOLECALCIFEROL (VITAMIN D3) * Take 5,000 Units by mouth onc* B COMPLEX 100 ORAL Take by mouth. VIT C 500 QK-YZIVIGDR-EMZ-FERMIN* Take by mouth. ESTRIOL (BULK) 100 % POWDER ASHWAGANDHA ROOT EXTRACT (BUL* [facility] URSI LEAF FLUID EXTRACT M* Problem List As Of Date 08/05/2017 Noted Resolved Axillary mass [R22.30] INVALID FOR* Mass of upper extremity [R22.30] INVALID FOR* Lipoma of axilla [D17.20] INVALID FOR* Other instructions from your clinician: No change in the RLL 18mm nodule compared to film of 01/18/17 and will repeat CXR in 6-8 months and see her back in the office in 6-9 months. Discussed to call if she notices any respiratory or chest- related changes. Follow up in 6-9 months after next CXR. Level of Service: EST PATIENT VISIT LEVEL 3 [26779] Disposition: Return in about 7 months (around 03/07/2018). Follow-up and Disposition History Recorded Encounter Status:Closed by KETAN ECHEVERRIA MD on 08/05/17 CHEST 2 VIEWS Observed: 07/19/2017 Status: F Source: [facility] [address]857 10:51 AM HEALTH SYSTEM REPOSITORY Performed at [facility] APPROVED BY: Hany Rivera MD EXAMINATION: CHEST RADIOGRAPH (2 VIEW FRONTAL & LATERAL) Clinical History: Right lung nodule MQ: XC2_4 Comparison: Multiple priors, most recently dated 01/18/2017. Chest radiograph dated 07/16/2006 RESULT: Lines, tubes, and devices: None. Lungs and pleura: Irregular nodular density right lower lobe measuring approximately 18 mm. This does appear slightly more confluent and solid than on prior radiographs from 07/16/2006. No significan t change compared to 01/18/2017. Lungs otherwise appear grossly clear. No pleural effusion. No pneumothorax. Cardiomediastinal silhouette: Normal cardiomediastinal silhouette. Other: No acute bony abnormalities seen. IMPRESSION: 18 mm right lower lobe nodular opacity appears slightly more solid and confluent compared to radiographs dated 07/16/2006. Chest CT would be recommended to evaluate for differences in cross-sectional features. No acute abnormality. ALLERGIES ALLERGIES DATE TYPE / CODE NAME / CODE REACTION SEVERITY SOURCE 01/21/2018 Drug sulfamethoxaz Unknown Unknown [facility] Allergy/4160 ole/[id number] Hospital 12113(SNOMED 7(RXNORM) Repository CT) 01/21/2018 Drug trimethoprim/ Unknown Unknown [facility] Allergy/4160 [id number](RX Hospital 64765(SNOMED NORM) Repository CT) 12/07/2015 Drug SULFA UNKNOWN [facility] Class/984535 (SULFONAMIDE Other [place] 003(SNOMED ANTIBIOTICS) Repository CT) /[id number] SULFA [facility] (SNOMED CT) (SULFONAMIDE Health System ANTIBIOTICS) Repository ENCOUNTERS ENCOUNTERS ADMIT/DISCHARGE ACCOUNT NUMBER ADMITTING ENCOUNTER LOCATION SOURCE CLASS 06/11/2018/06/11/19 [id number] NASIR, Ambulatory [place] [facility] Other [place] Repository 06/11/2018/06/11/19 [id number] Yoli BEST Inpatient [facility] MEDICAL Repository ELDONBuildi ng:ASCRoom: POOLBed: 06 05/05/2018 [id number] Ambulatory [facility] ding:LABSPEC Repository 03/22/2018/03/22/20 [id number] STEVE, Ambulatory [address] Other [place] Repository 03/22/2018/03/22/20 [id number] [facility] [place] [address] MEDICAL Repository ELDONBuildi ng:AKOURoom: ROUBed: 13 02/24/2018 [id number] [facility] Repository 02/24/2018/02/25/20 [id number] Ambulatory [place] [address] MEDICAL Repository ELDONBuildi ng:AKLBB 02/17/2018/02/18/20 [id number] Ambulatory [address] Other [place] Repository 02/17/2018/02/18/20 [id number] Ambulatory [address] MEDICAL Repository ELDONBuildi ng:URGR 02/07/2018/02/08/20 [id number] Ambulatory [address] Other [place] Repository 02/07/2018/02/08/20 [id number] Ambulatory [place] [address] MEDICAL Repository CENTERBuildi ng:AKXRB 01/27/2018/01/28/20 [id number] Ambulatory [address] Other [place] Repository 01/27/2018/01/28/20 [id number] Ambulatory [place] [address] MEDICAL Repository CENTERBuildi ng:AKUSB 08/23/2017 [id number] Ambulatory [facility] Repository 08/23/2017 [id number] Ambulatory [facility] MEDICAL Repository CENTERBuildi ng:AKCTB 08/23/2017 [id number] Ambulatory [facility] Repository 08/23/2017 [id number] Ambulatory [facility] MEDICAL Repository CENTERBuildi ng:AKCTB 08/16/2017 [id number] Ambulatory [facility] Other [place] Repository 08/16/2017/08/17/19 [id number] Ambulatory [address] MEDICAL Repository CENTERBuildi ng:AKLBB 08/15/2017/08/16/19 [id number] Ambulatory [address] Other [place] Repository 08/15/2017/08/16/19 [id number] Ambulatory [address] MEDICAL Repository CENTERBuildi ng:AKUF 08/05/2017/08/07/19 [id number] Ambulatory [address] Main [place] Repository 07/19/2017 [id number] Ambulatory [facility] Other [place] Repository 07/19/2017 [id number] Ambulatory [facility] Repository ELDONBuildi ng:AKXRB PAYERS PAYERS ENCOUNTER GUARANTOR PAYER SUBSCRIBER SOURCE 06/11/2018 PEACE Lechuga Primary PEACE Alexandrea Rodriguez General COLDWATERDOB: Insurance:MEDICARE A [facility]: Health System AND BPolicy Number: [id number] [facility] [id number] [place], [place] Date: [address]Rrk: (HP) 06/11/2018 Secondary PEACE Becerril Insurance:[facility] AARP GARDNERDOB: [facility] [id number] Repository Number: [id number] Date: 05/05/2018 PEACE Lechuga Primary PEACE Moe [id number] Insurance:[facility] PART A BPolicy Number: [id number] [place], [place] [id number] Repository [address]Hze: 330) Date:2018-05-05 [phone] (HP) 05/05/2018 Secondary PEACE [facility]ielsonoster [facility] Community Number: [id number] [facility] [id number] Repository Date:[id number], [place] [address]TB: 05/05/2018 Tertiary NOT GIVENUNK Abhi Insurance:SELF PAY Community [facility] Hospital Number: Effective Repository Date:2018-05-05 03/22/2018 PEACE Alexandrea Primary PEACE Alexandrea Michael General GARDNERDOB: Insurance:MEDICARE A GARDNERDOB: Health System AND BPolicy Number: [id number] Repository PATY [id number] [place], [place] Date: [address]Egq: (HP) 03/22/2018 Secondary PEACE Lechuga Michael [facility] Insurance:[facility] GARDNERDOB: Health System [facility] [id number] Repository Number: [id number] Date: 02/24/2018 PEACE Lechuga Primary PEACE Rodriguez General GARDNERDOB: Insurance:MEDICARE A GARDNERDOB: Health System AND BPolicy Number: [id number] Repository [place] [id number] [place], [place] Date: [address]Khl: (HP) 02/24/2018 Secondary PEACE Rodriguez General Insurance:[facility] GARDNERDOB: Health [facility] [id number] Repository Number: [id number] Date: 02/17/2018 PEACE Lechuga Primary PEACE Alexandrea Michael [facility] GARDNERDOB: Insurance:MEDICARE A GARDNERDOB: Health System AND BPolicy Number: [id number] Repository [place] [id number] [place], [place] Date: [address]Grc: (HP) 02/17/2018 Secondary PEACE Rodriguez General Insurance:[facility] AAR GARDNERDOB: Health [facility] [id number] Repository Number: [id number] Date: 02/07/2018 PEACE Lechuga Primary PEACE Lechuga [facility] GARDNERDOB: Insurance:MEDICARE A GARDNERDOB: Health System AND BPolicy Number: [id number] Repository [place] [id number] [place], [place] Date: [address]Kpm: (HP) 02/07/2018 Secondary PEACE Lechuga Michael General Insurance:[facility] AAR GARDNERDOB: Health System [facility] [id number] Repository Number: [id number] Date: 01/27/2018 PEACE Lechuga Primary PEACE Lechuga [facility] GARDNERDOB: Insurance:MEDICARE A GARDNERDOB: Health System AND BPolicy Number: [id number] Repository PATY [id number] [place], [place] Date: [address]Thr: (HP) 01/27/2018 Secondary PEACE Lechuga [facility] Insurance:[facility] GARDNERDOB: Health [facility] [id number] Repository Number: [id number] Date: 08/23/2017 PEACE Lechuga Primary PEACE Rodriguez [facility] GARDNERDOB: Insurance:MEDICARE A GARDNERDOB: Health System AND BPolicy Number: [id number] Repository PATY [id number] [facility] [place] [place] Date: [address]Lhv: (HP) 08/23/2017 Secondary PEACE Beeron General Insurance:[facility] GARDNERDOB: Health [facility] [id number] Repository Number: [id number] Date: 08/23/2017 PEACE Lechuga Primary PEACE Lechuga [facility] GARDNERDOB: Insurance:MEDICARE A GARDNERDOB: Health System AND BPolicy Number: [id number] Repository PATY [id number] [place] Date: [address]Aon: (HP) 08/23/2017 Secondary PEACE Rodriguez General Insurance:[facility] GARDNERDOB: Health [facility] [id number] Repository Number: [id number] Date: 08/16/2017 PEACE Lechuga Primary PEACE Rodriguez [facility] GARDNERDOB: Insurance:MEDICARE A GARDNERDOB: Health System AND BPolicy Number: [id number] Repository PATY [id number] [place], [place] Date: [address]Llv: (HP) 08/16/2017 Secondary PEACE Lechuga [facility] Insurance:[facility] AAR GARDNERDOB: Health System [facility] [id number] Repository Number: [id number] Date: 08/15/2017 PEACE Lechuga Primary PEACE Rodriguez [facility] GARDNERDOB: Insurance:MEDICARE A GARDNERDOB: Health System AND BPolicy Number: [id number] Repository PATY [id number] [facility] [place] Date: [address]Drd: (HP) 08/15/2017 Secondary PEACE Rodriguez General Insurance:[facility] AAR GARDNERDOB: Health System [facility]PPLEMENT[facility] [id number] Repository Number: [id number] Date: 07/19/2017 PEACE Lechuga Primary PEACE Alexandrea [facility] GARDNERDOB: Insurance:MEDICARE A GARDNERDOB: Health System AND BPolicy Number: [id number] Repository PATY [id number] RDDIGN[facility], [place] Date: [address]Uqk: (HP) 07/19/2017 Secondary PEACE Rodriguez General Insurance:[facility] AAR GARDNERDOB: Health System [facility] [id number] Repository Number: [id number] Date:
== END ==
PROVIDERS: Family Provider Nurse Practitioner; PCP Nurse Practitioner; Referring Provider Nurse Practitioner; Visit Provider Nurse Practitioner
DX: E03.9 Hypothyroidism, unspecified (principal); R13.10 Dysphagia, unspecified
CPT/HCPCS: 84443; 86376; 86800

== ENCOUNTER → 2023-02-08 | Outpatient (CLI) | payer MEDICARE, SELFPAY | END | disposition home or self-care (01) | PROVIDERS: PCP Nurse Practitioner; Visit Provider Nurse Practitioner | DX: R10.13 Epigastric pain (principal) | CPT/HCPCS: 87086 ==